=== PATIENT | male | born 1965 | race African-American/Black ===

== ENCOUNTER 2017-10-11 11:21 | Inpatient (IN) | payer OTHER ==
[2017-10-11 11:30] VITALS: BMI 21.8
--- NOTE | 2017-10-11 11:36 | HP ---
CIWA Score - CIWA Score Nausea/Vomitin-Mild Nausea/No Vomiting Muscle Tremors: 4-Moderate,w/Arms Extend Anxiety: 4-Mod. Anxious/Guarded Agitation: 1-Slight > Activity Paroxysmal Sweats: 1-Minimal Palms Moist Orientation: 2-Disoriented Date<2 days Tacttile Disturbances: 1-Very Mild Itch/Numbness Auditory Disturbances: 1-Very Mild Visual Disturbances: 1-Very Mild Sensitivity Headache: 2-Mild CIWA-Ar Total Score: 18 Admission ROS S - HPI Chief Complaint: I need detox, I want to stop drinking Allergies/Adverse Reactions: Allergies Allergy/AdvReac Type Severity Reaction Status Date / Time No Known Allergies Allergy Verified 10/11/17 12:13 History of Present Illness: 52 yo gentleman here for detox from alcohol - unsure of when/where his last detox is, has black outs. Was in [facility] ED for a fall - treated and sent for detox - laceration left eyebrow with steri-strips. Exam Limitations: Clinical Condition - Ebola screening Have you traveled outside of the country in the last 21 days: No Have you had contact with anyone from an Ebola affected area: No Have you been sick,other than usual withdrawal symptoms: No Do you have a fever: No - Review of Systems Constitutional: Loss of Appetite, Malaise, Changes in sleep, Weakness EENT: reports: Blurred Vision Respiratory: reports: Cough Cardiac: reports: No Symptoms Reported GI: reports: Indigestion : reports: Frequency Musculoskeletal: reports: Back Pain, Muscle Pain Integumentary: reports: Dryness Neuro: reports: Headache Endocrine: reports: No Symptoms Reported Hematology: reports: No Symptoms Reported Psychiatric: reports: Judgement Intact, Mood/Affect Appropiate, Anxious Other Systems: Reviewed and Negative Patient History - Patient Medical History Hx Anemia: No Hx Asthma: Yes (ON ALBUTEROL) Hx Chronic Obstructive Pulmonary Disease (COPD): No Hx Cancer: No Hx Cardiac Disorders: No Hx Congestive Heart Failure: No Hx Hypertension: No Hx Hypercholesterolemia: No Hx Pacemaker: No HX Cerebrovascular Accident: No Hx Seizures: No Hx Dementia: No Hx Diabetes: Yes Hx Gastrointestinal Disorders: No Hx Liver Disease: No Hx Genitourinary Disorders: No Hx Sexually Transmitted Disorders: No Hx Renal Disease (ESRD): No Hx Thyroid Disease: No Hx Human Immunodeficiency Virus (HIV): No Hx Hepatitis C: No Hx Depression: Yes (not on meds) Hx Suicide Attempt: No Hx Bipolar Disorder: No Hx Schizophrenia: No - Patient Surgical History Past Surgical History: No Hx Neurologic Surgery: No Hx Cataract Extraction: No Hx Cardiac Surgery: No Hx Lung Surgery: No Hx Breast Surgery: No Hx Breast Biopsy: No Hx Abdominal Surgery: Yes (hernia as a child) Hx Appendectomy: No Hx Cholecystectomy: No Hx Genitourinary Surgery: No Hx Section: No Hx Orthopedic Surgery: No Anesthesia Reaction: No - PPD History Previous Implant?: Yes Documented Results: Negative w/proof Date: 11/29/13 PPD to be Administered?: Yes - Reproductive History Patient is a Female of Child Bearing Age (11 -55 yrs old): No (male) - Smoking Cessation Smoking history: Current every day smoker Have you smoked in the past 12 months: Yes Aproximately how many cigarettes per day: 20 Cigars Per Day: 0 Hx Chewing Tobacco Use: No Initiated information on smoking cessation: Yes 'Breaking Loose' booklet given: 10/11/17 (give on floor) - Substance & Tx. History Hx Alcohol Use: Yes Hx Substance Use: No Substance Use Type: Alcohol Hx Substance Use Treatment: Yes - Substances Abused Alcohol Route: Oral Frequency: Daily Amount used: 2 pints liquor; two six packs of sixteen oz beers Age of first use: 11 Date of Last Use: 10/11/17 Family Disease History - Family Disease History Family Disease History: Diabetes: Sister ( - MVA), Other: Father ( etoh, , asthma), Mother (living, healthy), Sister Admission Physical Exam [facility] - Vital Signs Vital Signs: Vital Signs - 24 hr 10/11/17 11:23 Temperature 96.6 F L Pulse Rate 97 H Respiratory 18 Rate Blood Pressure 139/87 - Physical General Appearance: Yes: Nourished, Appropriately Dressed, Mild Distress HEENTM: Yes: Hearing grossly Normal, Normocephalic, Muffled/Hoarse Voice (low, muffled voice - states he has always been that way), Other (left eyebrow laceration/steristrips, conjunctiva mildly red) Respiratory: Yes: No Respiratory Distress, Rhonchi Neck: Yes: No masses,lesions,Nodules Breast: Yes: Breast Exam Deferred Cardiology: Yes: Regular Rhythm, Regular Rate Abdominal: Yes: Flat Genitourinary: Yes: Frequency Back: Yes: Decreased Range of Motion, Other (kyphosis) Musculoskeletal: Yes: Back pain Extremities: Yes: Normal Inspection, Non-Tender Neurological: Yes: Alert, Normal Mood/Affect, Normal Response Integumentary: Yes: Normal Color, Dry Lymphatic: Yes: Within Normal Limits - Addiitonal Findings: nti=[id number] - Diagnostic (1) Alcohol dependence Current Visit: Yes Status: Acute Qualifiers: Substance use status: uncomplicated Qualified Code(s): F10.20 - Alcohol dependence, uncomplicated (2) Asthma Current Visit: Yes Status: Acute Qualifiers: Asthma severity: moderate Asthma persistence: persistent (3) DM (diabetes mellitus), type 2 Current Visit: Yes Status: Acute Qualifiers: Diabetes mellitus complication status: without complication Diabetes mellitus moth exterminator insulin use: without moth exterminator use Qualified Code(s): E11.9 - Type 2 diabetes mellitus without complications (4) Nicotine dependence Current Visit: Yes Status: Acute Qualifiers: Nicotine product type: cigarettes Substance use status: uncomplicated Qualified Code(s): F17.210 - Nicotine dependence, cigarettes, uncomplicated Cleared for Admission [facility] - Detox or Rehab [facility] Level of Care: Medically Managed Detox Regimen/Protocol: Librium [facility] Breath Alcohol Content Breath Alcohol Content: 0.134 Urine Drug Screen - Results Drug Screen Negative: No Urine Drug Screen Results: BZO-Benzodiazepines
[2017-10-11] MEDS ORDERED: MAG HYDROX/AL HYDROX/SIMETH 30 ML UNIT-DOSE CUP PO PRN (11:55)
[2017-10-11] MEDS ORDERED: MAGNESIUM HYDROX 2400MG/30ML ORAL SUSPENSION 30 ML CUP PO PRN (11:55)
[2017-10-11] MEDS ORDERED: LOPERAMIDE HCL 2 MG CAPSULE PO PRN (11:55)
[2017-10-11] MEDS ORDERED: MENTHOL/PHENOL 1 EACH UD MM PRN (11:55)
[2017-10-11] MEDS ORDERED: IBUPROFEN 400 MG TABLET (FP) PO PRN (11:55)
[2017-10-11] MEDS ORDERED: guaiFENesin/D-METHORPHAN HB 10 ML UNIT-DOSE CUPS PO PRN (11:55)
[2017-10-11] MEDS ORDERED: MAGNESIUM CITRATE 300 ML BOTTLE PO PRN (11:55)
[2017-10-11] MEDS ORDERED: P-EPHED 60MG/TRIPROLIDI 2.5MG TABLET PO PRN (11:55)
[2017-10-11] MEDS ORDERED: hydrOXYzine PAMOATE 25 MG CAPSULE (FP) PO PRN (11:55)
[2017-10-11] MEDS ORDERED: chlordiazePOXIDE HCL 25 MG CAPSULE PO PRN (11:55)
[2017-10-11] MEDS ORDERED: ACETAMINOPHEN 325 MG TABLET (FP) PO PRN (11:55)
[2017-10-11] MEDS ORDERED: ALBUTEROL SO4 18 GM HFA INHALER IH PRN (11:57)
[2017-10-11] MEDS ORDERED: chlordiazePOXIDE HCL 25 MG CAPSULE PO ONE (14:00)
[2017-10-11] MEDS: metFORMIN HCL 500 MG TABLET (FP) PO SCH ×2 (14:03→23:22)
[2017-10-11] MEDS: NICOTINE 21 MG/24 HOURS TOPICAL PATCH TD SCH (14:05)
[2017-10-11] MEDS: chlordiazePOXIDE HCL 25 MG CAPSULE PO SCH ×2 (17:15→23:22)
[2017-10-11] MEDS: THIAMINE HCL 100 MG TABLET (FP) PO SCH (23:22)
[2017-10-12 00:07] LABS: URINE APPEARANCE SLCLOUDY; URINE BILIRUBIN NEGATIVE (NEGATIVE); URINE BLOOD NEGATIVE (NEGATIVE); URINE COLOR DKYELLOW; URINE GLUCOSE (UA) NEGATIVE (NEGATIVE); URINE KETONE TRACE (NEGATIVE); URINE LEUK ESTERASE NEGATIVE (NEGATIVE); URINE NITRITE NEGATIVE (NEGATIVE); URINE PROTEIN NEGATIVE (NEGATIVE)
[2017-10-12] MEDS: chlordiazePOXIDE HCL 25 MG CAPSULE PO SCH ×4 (06:23→22:42)
--- NOTE | 2017-10-12 08:49 | CONSULT ---
[facility] Psychiatric Consult - Data Date of interview: 10/12/17 Admission source: [facility] Identifying data: Mr Erazo is a 52 years old single Black male, unemployed with no source of income, living in a residence on [address] [facility] Substance Abuse History: Reports history of alcohol use. He started drinking alcohol at age 11, consumes 2 pints of liquor & 2x 6pk(16oz) of beer daily. Last drank on 10/11/17 Medical History: Significant for bronchial asthma, type 2 diabetes mellitus and history of surgery for umbilical hernia repair as a child. Smokes cigarettes 1ppd Psychiatric History: Denies history of previous psychiatric treatment Physical/Sexual Abuse/Trauma History: Denies history of verbal, physical or sexual abuse as well as DV relationship. No service Additional Comment: Denies criminal history Mental Status Exam - Mental Status Exam Alert and Oriented to: Time (Canot tell month, day and date), Place ([place]) , Person Patient Appearance: Disheveled Mood: Depressed Affect: Constricted Patient Behavior: Cooperative Speech Pattern: Clear Voice Loudness: Normal Thought Disorder: Not Present Hallucinations: Denies Suicidal Ideation: Denies Homicidal Ideation: Denies Insight/Judgement: Fair, Poor Sleep: Fair Appetite: Good Muscle strength/Tone: Normal Gait/Station: Normal Psychiatric Findings - Problem List ([place] 1, 2,3) (1) Alcohol-induced mood disorder Current Visit: Yes Status: Acute (2) Alcohol dependence with uncomplicated withdrawal Current Visit: Yes Status: Acute (3) Nicotine dependence Current Visit: Yes Status: Acute Qualifiers: Nicotine product type: cigarettes Substance use status: uncomplicated Qualified Code(s): F17.210 - Nicotine dependence, cigarettes, uncomplicated (4) Asthma Current Visit: Yes Status: Acute Qualifiers: Asthma severity: moderate Asthma persistence: persistent (5) DM (diabetes mellitus), type 2 Current Visit: Yes Status: Acute Qualifiers: Diabetes mellitus complication status: without complication Diabetes mellitus mcc insulin use: without mcc use Qualified Code(s): E11.9 - Type 2 diabetes mellitus without complications - Initial Treatment Plan Initial Treatment Plan: Continue inpatient detoxification
--- NOTE | 2017-10-12 08:57 | EKG ---
Test Reason : Blood Pressure : / mmHG Vent. Rate : 088 BPM Atrial Rate : 088 BPM P-R Int : 114 ms QRS Dur : 082 ms QT Int : 366 ms P-R-T Axes : 070 074 063 degrees QTc Int : 442 ms NORMAL SINUS RHYTHM WITH SHORT MT NONSPECIFIC T WAVE ABNORMALITY NO PREVIOUS ECGS AVAILABLE Confirmed by RHETT HORN MD ([id number]) on 10/12/2017 8:57:08 AM Referred By: Confirmed By:RHETT HORN MD
[2017-10-12 10:06] LABS: ALBUMIN 3.2 g/dl (3.4-5.0); ALK PHOS 50 U/L (45-117); ANION GAP 3 (8-16); BILIRUBIN,TOTAL 0.4 mg/dL (0.2-1.0); CALCIUM 8.8 mg/dL (8.5-10.1); CO2 37 mmol/L (21-32); CREATININE 0.7 mg/dL (0.7-1.3); GLUCOSE,RANDOM 92 mg/dL (74-106); SGOT/AST 8 U/L (15-37); SGPT/ALT 21 U/L (12-78); TOT PROT 5.9 g/dl (6.4-8.2)
[2017-10-12 10:15] LABS: MCH 28.2 pg (25.7-33.7); MCHC 31.9 g/dl (32.0-35.9); MEAN CELL VOLUME 88.5 fl (80-96); MEAN PLT VOLUME 9.4 fl (7.5-11.1); PLATELET COUNT 317 K/MM3 (134-434); RDW 15.5 % (11.9-15.9); WHITE BLOOD COUNT 8.8 K/mm3 (4.0-10.0)
[2017-10-12] MEDS: PRENATAL VITAMINS W/ FOLIC ACID TABLET (FP) PO SCH (11:10)
[2017-10-12] MEDS: NICOTINE 21 MG/24 HOURS TOPICAL PATCH TD SCH (11:10)
[2017-10-12] MEDS: metFORMIN HCL 500 MG TABLET (FP) PO SCH ×2 (11:11→22:42)
[2017-10-12 11:18] LABS: HIV 1 & 2 AB NEGATIVE; HIV 1 AGp24 NEGATIVE
--- NOTE | 2017-10-12 13:14 | PN ---
S CIWA - CIWA Score Nausea/Vomitin-No Nausea/No Vomiting Muscle Tremors: 4-Moderate,w/Arms Extend Anxiety: 4-Mod. Anxious/Guarded Agitation: 4-Moderately Restless Paroxysmal Sweats: 3 Orientation: 0-Oriented Tacttile Disturbances: 0-None Auditory Disturbances: 0-None Visual Disturbances: 0-None Headache: 3-Moderate CIWA-Ar Total Score: 18 BHS Progress Note (SOAP) Subjective: Tremor, sweating, headache, interrupted sleep Objective: 10/12/17 13:10 Last Vital Signs Temp Pulse Resp BP Pulse Ox 97.1 F L 122 H 18 127/78 10/12/17 10:32 10/12/17 10:32 10/12/17 10:32 10/12/17 10:32 pulse 122: tachycardia Laboratory Tests 10/11/17 10/11/17 10/11/17 12:25 14:30 22:00 WBC RBC Hgb Hct MCV MCH MCHC RDW Plt Count MPV Sodium Potassium Chloride Carbon Dioxide Anion Gap BUN Creatinine Creat Clearance w eGFR POC Glucometer 112 109 Random Glucose Calcium Total Bilirubin AST ALT Alkaline Phosphatase Total Protein Albumin Urine Color Dkyellow Urine Appearance Slcloudy Urine pH 5.0 Ur Specific [place] 1.025 Urine Protein Negative Urine Glucose (UA) Negative Urine Ketones Trace H Urine Blood Negative Urine Nitrite Negative Urine Bilirubin Negative Urine Urobilinogen 2.0 RPR Titer HIV 1&2 Antibody Screen HIV P24 Antigen 10/12/17 10/12/17 10/12/17 06:13 08:00 08:00 WBC 8.8 RBC 4.72 Hgb 13.3 Hct 41.8 MCV 88.5 MCH 28.2 MCHC 31.9 L RDW 15.5 Plt Count 317 D MPV 9.4 Sodium 143 Potassium 4.0 Chloride 103 Carbon Dioxide 37 H Anion Gap 3 L BUN 23 H Creatinine 0.7 Creat Clearance w eGFR > 60 POC Glucometer 115 Random Glucose 92 D Calcium 8.8 Total Bilirubin 0.4 D AST 8 L D ALT 21 Alkaline Phosphatase 50 Total Protein 5.9 L Albumin 3.2 L Urine Color Urine Appearance Urine pH Ur Specific [place] Urine Protein Urine Glucose (UA) Urine Ketones Urine Blood Urine Nitrite Urine Bilirubin Urine Urobilinogen RPR Titer HIV 1&2 Antibody Screen HIV P24 Antigen 10/12/17 10/12/17 08:00 08:00 WBC RBC Hgb Hct MCV MCH MCHC RDW Plt Count MPV Sodium Potassium Chloride Carbon Dioxide Anion Gap BUN Creatinine Creat Clearance w eGFR POC Glucometer Random Glucose Calcium Total Bilirubin AST ALT Alkaline Phosphatase Total Protein Albumin Urine Color Urine Appearance Urine pH Ur Specific [place] Urine Protein Urine Glucose (UA) Urine Ketones Urine Blood Urine Nitrite Urine Bilirubin Urine Urobilinogen RPR Titer Nonreactive HIV 1&2 Antibody Screen Negative HIV P24 Antigen Negative Labs noted: bun 23 Assessment: 10/12/17 13:12 Withdrawal symptoms Noted with azotemia Plan: Continue detox Tachycardia most likely secondary to withdrawal symptoms or dehydration: encouraged to drink plenty of water, continue to monitor vital signs Azotemia: encouraged to drink lots of water
[2017-10-12 13:20] LABS: URINE LEUK ESTERASE NEGATIVE (NEGATIVE)
[2017-10-12] MEDS: THIAMINE HCL 100 MG TABLET (FP) PO SCH (22:42)
[2017-10-13] MEDS: chlordiazePOXIDE HCL 25 MG CAPSULE PO SCH ×2 (06:25→10:37)
[2017-10-13] MEDS: PRENATAL VITAMINS W/ FOLIC ACID TABLET (FP) PO SCH (10:33)
[2017-10-13] MEDS: metFORMIN HCL 500 MG TABLET (FP) PO SCH ×2 (10:33→17:22)
[2017-10-13] MEDS: NICOTINE 21 MG/24 HOURS TOPICAL PATCH TD SCH (10:37)
--- NOTE | 2017-10-13 12:11 | PN ---
[facility] CIWA - CIWA Score Nausea/Vomitin-No Nausea/No Vomiting Muscle Tremors: 5 Anxiety: 4-Mod. Anxious/Guarded Agitation: 2 Paroxysmal Sweats: 3 Orientation: 2-Disoriented Date<2 days Tacttile Disturbances: 1-Very Mild Itch/Numbness Auditory Disturbances: 0-None Visual Disturbances: 0-None Headache: 0-None Present CIWA-Ar Total Score: 17 BHS Progress Note (SOAP) Subjective: Tremors, Sweating, Anxious, Fatigue. Objective: PT. A & O X 2 (UNCERTAIN ABOUT CURRENT DAY/ DATE). NO ACUTE DSITRESS. 10/13/17 12:09 Vital Signs Temperature 97.9 F 10/13/17 09:21 Pulse Rate 99 H 10/13/17 09:21 Respiratory Rate 18 10/13/17 09:21 Blood Pressure 117/79 10/13/17 09:21 O2 Sat by Pulse Oximetry (%) Laboratory Tests 10/11/17 10/11/17 10/11/17 12:25 14:30 22:00 WBC RBC Hgb Hct MCV MCH MCHC RDW Plt Count MPV Sodium Potassium Chloride Carbon Dioxide Anion Gap BUN Creatinine Creat Clearance w eGFR POC Glucometer 112 109 Random Glucose Calcium Total Bilirubin AST ALT Alkaline Phosphatase Total Protein Albumin Urine Color Dkyellow Urine Appearance Slcloudy Urine pH 5.0 Ur Specific [place] 1.025 Urine Protein Negative Urine Glucose (UA) Negative Urine Ketones Trace H Urine Blood Negative Urine Nitrite Negative Urine Bilirubin Negative Urine Urobilinogen 2.0 Ur Leukocyte Esterase Negative RPR Titer HIV 1&2 Antibody Screen HIV P24 Antigen 10/12/17 10/12/17 10/12/17 06:13 08:00 08:00 WBC 8.8 RBC 4.72 Hgb 13.3 Hct 41.8 MCV 88.5 MCH 28.2 MCHC 31.9 L RDW 15.5 Plt Count 317 D MPV 9.4 Sodium 143 Potassium 4.0 Chloride 103 Carbon Dioxide 37 H Anion Gap 3 L BUN 23 H Creatinine 0.7 Creat Clearance w eGFR > 60 POC Glucometer 115 Random Glucose 92 D Calcium 8.8 Total Bilirubin 0.4 D AST 8 L D ALT 21 Alkaline Phosphatase 50 Total Protein 5.9 L Albumin 3.2 L Urine Color Urine Appearance Urine pH Ur Specific [place] Urine Protein Urine Glucose (UA) Urine Ketones Urine Blood Urine Nitrite Urine Bilirubin Urine Urobilinogen Ur Leukocyte Esterase RPR Titer HIV 1&2 Antibody Screen HIV P24 Antigen 10/12/17 10/12/17 10/12/17 08:00 08:00 20:53 WBC RBC Hgb Hct MCV MCH MCHC RDW Plt Count MPV Sodium Potassium Chloride Carbon Dioxide Anion Gap BUN Creatinine Creat Clearance w eGFR POC Glucometer 205 Random Glucose Calcium Total Bilirubin AST ALT Alkaline Phosphatase Total Protein Albumin Urine Color Urine Appearance Urine pH Ur Specific [place] Urine Protein Urine Glucose (UA) Urine Ketones Urine Blood Urine Nitrite Urine Bilirubin Urine Urobilinogen Ur Leukocyte Esterase RPR Titer Nonreactive HIV 1&2 Antibody Screen Negative HIV P24 Antigen Negative 10/13/17 06:15 WBC RBC Hgb Hct MCV MCH MCHC RDW Plt Count MPV Sodium Potassium Chloride Carbon Dioxide Anion Gap BUN Creatinine Creat Clearance w eGFR POC Glucometer 100 Random Glucose Calcium Total Bilirubin AST ALT Alkaline Phosphatase Total Protein Albumin Urine Color Urine Appearance Urine pH Ur Specific [place] Urine Protein Urine Glucose (UA) Urine Ketones Urine Blood Urine Nitrite Urine Bilirubin Urine Urobilinogen Ur Leukocyte Esterase RPR Titer HIV 1&2 Antibody Screen HIV P24 Antigen LABS NOTED. Assessment: 10/13/17 12:10 WITHDRAWAL SYMPTOMS. Plan: CONTINUE DETOX. INCREASE DAILY PO FLUID INTAKE.
[2017-10-13] MEDS ORDERED: metFORMIN HCL 500 MG TABLET (FP) PO SCH (16:58)
[2017-10-13] MEDS: chlordiazePOXIDE 5 MG CAPSULE PO SCH ×2 (17:22→22:50)
[2017-10-13] MEDS: THIAMINE HCL 100 MG TABLET (FP) PO SCH (22:50)
[2017-10-14] MEDS: metFORMIN HCL 500 MG TABLET (FP) PO SCH ×2 (06:42→17:20)
[2017-10-14] MEDS: chlordiazePOXIDE 5 MG CAPSULE PO SCH ×2 (06:42→10:19)
--- NOTE | 2017-10-14 09:25 | PN ---
BHS Progress Note (SOAP) Subjective: tremor sweat irritable Objective: 10/14/17 09:24 Vital Signs Temperature 96.7 F L 10/14/17 09:12 Pulse Rate 84 10/14/17 09:12 Respiratory Rate 18 10/14/17 09:12 Blood Pressure 147/87 10/14/17 09:12 O2 Sat by Pulse Oximetry (%) Laboratory Last Values WBC 8.8 K/mm3 (4.0-10.0) 10/12/17 08:00 RBC 4.72 M/mm3 (4.00-5.60) 10/12/17 08:00 Hgb 13.3 GM/dL (11.7-16.9) 10/12/17 08:00 Hct 41.8 % (35.4-49) 10/12/17 08:00 MCV 88.5 fl (80-96) 10/12/17 08:00 MCH 28.2 pg (25.7-33.7) 10/12/17 08:00 MCHC 31.9 g/dl (32.0-35.9) L 10/12/17 08:00 RDW 15.5 % (11.9-15.9) 10/12/17 08:00 Plt Count 317 K/MM3 (134-434) D 10/12/17 08:00 MPV 9.4 fl (7.5-11.1) 10/12/17 08:00 Sodium 143 mmol/L (136-145) 10/12/17 08:00 Potassium 4.0 mmol/L (3.5-5.1) 10/12/17 08:00 Chloride 103 mmol/L (98-107) 10/12/17 08:00 Carbon Dioxide 37 mmol/L (21-32) H 10/12/17 08:00 Anion Gap 3 (8-16) L 10/12/17 08:00 BUN 23 mg/dL (7-18) H 10/12/17 08:00 Creatinine 0.7 mg/dL (0.7-1.3) 10/12/17 08:00 Creat Clearance w eGFR > 60 (>60) 10/12/17 08:00 POC Glucometer 100 UNITS (80-120) 10/14/17 05:59 Random Glucose 92 mg/dL (74-106) D 10/12/17 08:00 Calcium 8.8 mg/dL (8.5-10.1) 10/12/17 08:00 Total Bilirubin 0.4 mg/dL (0.2-1.0) D 10/12/17 08:00 AST 8 U/L (15-37) L D 10/12/17 08:00 ALT 21 U/L (12-78) 10/12/17 08:00 Alkaline Phosphatase 50 U/L (45-117) 10/12/17 08:00 Total Protein 5.9 g/dl (6.4-8.2) L 10/12/17 08:00 Albumin 3.2 g/dl (3.4-5.0) L 10/12/17 08:00 Urine Color Dkyellow 10/11/17 14:30 Urine Appearance Slcloudy 10/11/17 14:30 Urine pH 5.0 (5.0-8.0) 10/11/17 14:30 Ur Specific [place] 1.025 (1.001-1.035) 10/11/17 14:30 Urine Protein Negative (NEGATIVE) 10/11/17 14:30 Urine Glucose (UA) Negative (NEGATIVE) 10/11/17 14:30 Urine Ketones Trace (NEGATIVE) H 10/11/17 14:30 Urine Blood Negative (NEGATIVE) 10/11/17 14:30 Urine Nitrite Negative (NEGATIVE) 10/11/17 14:30 Urine Bilirubin Negative (NEGATIVE) 10/11/17 14:30 Urine Urobilinogen 2.0 mg/dL (0.2-1.0) 10/11/17 14:30 Ur Leukocyte Esterase Negative (NEGATIVE) 10/11/17 14:30 RPR Titer Nonreactive (NONREACTIVE) 10/12/17 08:00 HIV 1&2 Antibody Screen Negative 10/12/17 08:00 HIV P24 Antigen Negative 10/12/17 08:00 lab noted Assessment: 10/14/17 09:25 withdrawal sx Plan: observation with detox regimen
[2017-10-14] MEDS: PRENATAL VITAMINS W/ FOLIC ACID TABLET (FP) PO SCH (10:18)
[2017-10-14] MEDS: NICOTINE 21 MG/24 HOURS TOPICAL PATCH TD SCH (10:19)
[2017-10-14] MEDS: chlordiazePOXIDE HCL 10 MG CAPSULE PO SCH ×2 (17:20→22:29)
[2017-10-14] MEDS: THIAMINE HCL 100 MG TABLET (FP) PO SCH (22:29)
[2017-10-15] MEDS: chlordiazePOXIDE HCL 10 MG CAPSULE PO SCH (06:03)
[2017-10-15] MEDS: metFORMIN HCL 500 MG TABLET (FP) PO SCH (08:00)
[2017-10-15 09:51] VITALS: BP 104/67; PULSE 69; TEMP 9.9
--- NOTE | 2017-10-15 11:20 | DS ---
[facility] Detox Discharge Summary Admission Date: 10/11/17 Discharge Date: 10/15/17 - History Present History: Alcohol Dependence Additional Comments: DETOX COMPLETED. ALERT O X 3. PT WAS PICKED UP TODAY BY [facility] FOR AFTER CARE. 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 Pertinent Past History: TYPE 2 DM ASTHMA - Physical Exam Results Vital Signs: Vital Signs Temperature 9.9 F L 10/15/17 09:51 Pulse Rate 69 10/15/17 09:51 Respiratory Rate 18 10/15/17 09:51 Blood Pressure 104/67 10/15/17 09:51 O2 Sat by Pulse Oximetry (%) Pertinent Admission Physical Exam Findings: WITHDRAWAL SX Laboratory Last Values WBC 8.8 K/mm3 (4.0-10.0) 10/12/17 08:00 RBC 4.72 M/mm3 (4.00-5.60) 10/12/17 08:00 Hgb 13.3 GM/dL (11.7-16.9) 10/12/17 08:00 Hct 41.8 % (35.4-49) 10/12/17 08:00 MCV 88.5 fl (80-96) 10/12/17 08:00 MCH 28.2 pg (25.7-33.7) 10/12/17 08:00 MCHC 31.9 g/dl (32.0-35.9) L 10/12/17 08:00 RDW 15.5 % (11.9-15.9) 10/12/17 08:00 Plt Count 317 K/MM3 (134-434) D 10/12/17 08:00 MPV 9.4 fl (7.5-11.1) 10/12/17 08:00 Sodium 143 mmol/L (136-145) 10/12/17 08:00 Potassium 4.0 mmol/L (3.5-5.1) 10/12/17 08:00 Chloride 103 mmol/L (98-107) 10/12/17 08:00 Carbon Dioxide 37 mmol/L (21-32) H 10/12/17 08:00 Anion Gap 3 (8-16) L 10/12/17 08:00 BUN 23 mg/dL (7-18) H 10/12/17 08:00 Creatinine 0.7 mg/dL (0.7-1.3) 10/12/17 08:00 Creat Clearance w eGFR > 60 (>60) 10/12/17 08:00 POC Glucometer 90 UNITS (80-120) 10/15/17 07:18 Random Glucose 92 mg/dL (74-106) D 10/12/17 08:00 Calcium 8.8 mg/dL (8.5-10.1) 10/12/17 08:00 Total Bilirubin 0.4 mg/dL (0.2-1.0) D 10/12/17 08:00 AST 8 U/L (15-37) L D 10/12/17 08:00 ALT 21 U/L (12-78) 10/12/17 08:00 Alkaline Phosphatase 50 U/L (45-117) 10/12/17 08:00 Total Protein 5.9 g/dl (6.4-8.2) L 10/12/17 08:00 Albumin 3.2 g/dl (3.4-5.0) L 10/12/17 08:00 Urine Color Dkyellow 10/11/17 14:30 Urine Appearance Slcloudy 10/11/17 14:30 Urine pH 5.0 (5.0-8.0) 10/11/17 14:30 Ur Specific [place] 1.025 (1.001-1.035) 10/11/17 14:30 Urine Protein Negative (NEGATIVE) 10/11/17 14:30 Urine Glucose (UA) Negative (NEGATIVE) 10/11/17 14:30 Urine Ketones Trace (NEGATIVE) H 10/11/17 14:30 Urine Blood Negative (NEGATIVE) 10/11/17 14:30 Urine Nitrite Negative (NEGATIVE) 10/11/17 14:30 Urine Bilirubin Negative (NEGATIVE) 10/11/17 14:30 Urine Urobilinogen 2.0 mg/dL (0.2-1.0) 10/11/17 14:30 Ur Leukocyte Esterase Negative (NEGATIVE) 10/11/17 14:30 RPR Titer Nonreactive (NONREACTIVE) 10/12/17 08:00 HIV 1&2 Antibody Screen Negative 10/12/17 08:00 HIV P24 Antigen Negative 10/12/17 08:00 - Treatment Hospital Course: Detox Protocol Followed, Detoxed Safely, Responded well, Discharged Condition Good, Rehab Referral Accepted Patient has Accepted a Rehab Referral to: [facility] - Medication Discharge Medications: Ambulatory Orders Albuterol Sulfate Inhaler - [Ventolin HFA Inhaler -] 2 inh PO Q4H PRN #1 inhaler 10/15/17 Metformin HCl [Glucophage -] 500 mg PO BID #60 tablet 10/15/17 - AMA Did Patient Leave Against Medical Advice: No
== END 2017-10-15 10:48 | disposition home or self-care (01) | DRG 775 ==
LOC: YASAS 11:21 → Y3N 13:24
PROVIDERS: ADMIT Internal Medicine; ATTEND Internal Medicine
PROC: HZ2ZZZZ Detoxification Services for Substance Abuse Treatment (ICD-10-PCS; principal; 2017-10-11)
DX: F10.230 Alcohol dependence with withdrawal, uncomplicated (principal); F17.213 Nicotine dependence, cigarettes, with withdrawal; F10.24 Alcohol dependence with alcohol-induced mood disorder; J45.20 Mild intermittent asthma, uncomplicated; E11.9 Type 2 diabetes mellitus without complications; Z79.84 Long term (current) use of oral hypoglycemic drugs
CPT/HCPCS: 36415; 80053; 81003; 85027; 86593; 87389; 93005; 93010

== ENCOUNTER 2017-12-20 11:20 | Inpatient (IN) | payer OTHER ==
[2017-12-20 12:13] VITALS: BMI 21.6
--- NOTE | 2017-12-20 14:34 | HP ---
CIWA Score - CIWA Score Nausea/Vomitin-Mild Nausea/No Vomiting Muscle Tremors: 4-Moderate,w/Arms Extend Anxiety: 4-Mod. Anxious/Guarded Agitation: 1-Slight > Activity Paroxysmal Sweats: 1-Minimal Palms Moist Orientation: 1-Uncertain about Date Tacttile Disturbances: 1-Very Mild Itch/Numbness Auditory Disturbances: 1-Very Mild Visual Disturbances: 1-Very Mild Sensitivity Headache: 2-Mild CIWA-Ar Total Score: 17 Admission ROS S - HPI Chief Complaint: I'm tired of suffering, I want help to stop drinking Allergies/Adverse Reactions: Allergies Allergy/AdvReac Type Severity Reaction Status Date / Time No Known Allergies Allergy Verified 12/20/17 14:51 History of Present Illness: 52 yo gentleman here for detox from alcohol - denies using any other substance although pcp, thc and bzo found in urine tox. No seizures, does have black outs. Scabbed areas on cheek - states he fell a few days ago due to intoxication but did not seek care. Exam Limitations: No Limitations - Ebola screening Have you traveled outside of the country in the last 21 days: No (N) Have you had contact with anyone from an Ebola affected area: No Have you been sick,other than usual withdrawal symptoms: No Do you have a fever: No - Review of Systems Constitutional: Loss of Appetite, Malaise, Changes in sleep, Weakness EENT: reports: Blurred Vision, Nose Congestion Respiratory: reports: SOB with Exertion Cardiac: reports: No Symptoms Reported GI: reports: Nausea, Poor Appetite, Indigestion : reports: Frequency Musculoskeletal: reports: No Symptoms Reported Integumentary: reports: No Symptoms Reported Neuro: reports: Headache, Tremors Endocrine: reports: No Symptoms Reported Hematology: reports: No Symptoms Reported Psychiatric: reports: Judgement Intact, Mood/Affect Appropiate, Anxious Other Systems: Reviewed and Negative Patient History - Patient Medical History Hx Anemia: No Hx Asthma: Yes (ON ALBUTEROL) Hx Chronic Obstructive Pulmonary Disease (COPD): Yes Hx Cancer: No Hx Cardiac Disorders: No Hx Congestive Heart Failure: No Hx Hypertension: No Hx Hypercholesterolemia: Yes (poor adherence to meds) Hx Pacemaker: No HX Cerebrovascular Accident: No Hx Seizures: No Hx Dementia: No Hx Diabetes: Yes (on meds) Hx Gastrointestinal Disorders: No Hx Liver Disease: No Hx Genitourinary Disorders: No Hx Sexually Transmitted Disorders: No Hx Renal Disease (ESRD): No Hx Thyroid Disease: No Hx Human Immunodeficiency Virus (HIV): No Hx Hepatitis C: No Hx Depression: Yes (not on meds) Hx Suicide Attempt: No Hx Bipolar Disorder: No Hx Schizophrenia: No Other Medical History: legally blind left eye - Patient Surgical History Past Surgical History: No Hx Neurologic Surgery: No Hx Cataract Extraction: No Hx Cardiac Surgery: No Hx Lung Surgery: No Hx Breast Surgery: No Hx Breast Biopsy: No Hx Abdominal Surgery: Yes (hernia as a child) Hx Appendectomy: No Hx Cholecystectomy: No Hx Genitourinary Surgery: No Hx Section: No Hx Orthopedic Surgery: No Other Surgical History: detached retina surgery years ago Anesthesia Reaction: No - PPD History Previous Implant?: Yes Documented Results: Negative w/proof Implanted On Prior [facility] Admission?: Yes Date: 10/13/17 Results: 0mm PPD to be Administered?: No - Reproductive History Patient is a Female of Child Bearing Age (11 -55 yrs old): No (male) - Smoking Cessation Smoking history: Current every day smoker Have you smoked in the past 12 months: Yes Aproximately how many cigarettes per day: 20 Cigars Per Day: 0 Hx Chewing Tobacco Use: No Initiated information on smoking cessation: Yes 'Breaking Loose' booklet given: 12/20/17 (give on floor) - Substance & Tx. History Hx Alcohol Use: Yes - Substances Abused Alcohol Route: Oral Frequency: Daily Amount used: two six packs 12 oz beer; 1 pint liquor Age of first use: 13 Date of Last Use: 12/19/17 Family Disease History - Family Disease History Family Disease History: Diabetes: Sister ( - MVA), Other: Father ( etoh, , asthma), Mother (living, healthy), Sister Admission Physical Exam BHS - Vital Signs Vital Signs: Vital Signs - 24 hr 12/20/17 12:09 Temperature 98.3 F Pulse Rate 88 Respiratory 16 Rate Blood Pressure 143/91 - Physical General Appearance: Yes: Appropriately Dressed, Mild Distress, Thin, Tremorous, Anxious HEENTM: Yes: Hearing grossly Normal, Normocephalic, Normal Voice, Muffled/ Hoarse Voice, Other (both eye with red conjunctiva (no exudate)) Respiratory: Yes: No Respiratory Distress, Rhonchi Neck: Yes: No masses,lesions,Nodules, Supple Breast: Yes: Breast Exam Deferred Cardiology: Yes: Regular Rhythm, Regular Rate Abdominal: Yes: Flat Genitourinary: Yes: Frequency Back: Yes: Normal Inspection Musculoskeletal: Yes: full range of Motion, Gait Steady Neurological: Yes: Alert, Normal Mood/Affect, Normal Response Integumentary: Yes: Normal Color, Warm, Other (right cheek with 2cm scabbed area , left eyebrow with scabbing) Lymphatic: Yes: Within Normal Limits - Addiitonal Findings: bgm=95 - Diagnostic (1) Alcohol dependence with uncomplicated withdrawal Current Visit: Yes Status: Acute (2) Nicotine dependence Current Visit: Yes Status: Acute Qualifiers: Nicotine product type: cigarettes Substance use status: in withdrawal Qualified Code(s): F17.213 - Nicotine dependence, cigarettes, with withdrawal (3) Legally blind in left eye, as defined in [place] Current Visit: Yes Status: Acute (4) Asthma Current Visit: Yes Status: Chronic Qualifiers: Asthma severity: moderate Asthma persistence: persistent (5) DM (diabetes mellitus), type 2 Current Visit: Yes Status: Chronic Qualifiers: Diabetes mellitus complication status: without complication Diabetes mellitus sales manager [place] insulin use: without sales manager [place] use Qualified Code(s): E11.9 - Type 2 diabetes mellitus without complications (6) Syncope Current Visit: Yes Status: Acute Qualifiers: Syncope type: unspecified Qualified Code(s): R55 - Syncope and collapse Cleared for Admission [facility] - Detox or Rehab [facility] Level of Care: Medically Managed Detox Regimen/Protocol: Librium S Breath Alcohol Content Breath Alcohol Content: 0 Urine Drug Screen - Results Urine Drug Screen Results: THC-Marijuana, MET-Methamphetamine, PCP-Phencyclidine , BZO-Benzodiazepines
[2017-12-20] MEDS ORDERED: P-EPHED 60MG/TRIPROLIDI 2.5MG TABLET PO PRN (14:49)
[2017-12-20] MEDS ORDERED: MENTHOL/PHENOL 1 EACH UD MM PRN (14:49)
[2017-12-20] MEDS ORDERED: NICOTINE POLACRILEX 4 MG GUM BC PRN (14:49)
[2017-12-20] MEDS ORDERED: IBUPROFEN 400 MG TABLET (FP) PO PRN (14:49)
[2017-12-20] MEDS ORDERED: ACETAMINOPHEN 325 MG TABLET (FP) PO PRN (14:49)
[2017-12-20] MEDS ORDERED: chlordiazePOXIDE HCL 25 MG CAPSULE PO ONE (14:49)
[2017-12-20] MEDS ORDERED: chlordiazePOXIDE HCL 25 MG CAPSULE PO PRN (14:49)
[2017-12-20] MEDS ORDERED: MAG HYDROX/AL HYDROX/SIMETH 30 ML UNIT-DOSE CUP PO PRN (14:49)
[2017-12-20] MEDS ORDERED: MAGNESIUM CITRATE 300 ML BOTTLE PO PRN (14:49)
[2017-12-20] MEDS ORDERED: guaiFENesin/D-METHORPHAN HB 10 ML UNIT-DOSE CUPS PO PRN (14:49)
[2017-12-20] MEDS ORDERED: MAGNESIUM HYDROX 2400MG/30ML ORAL SUSPENSION 30 ML CUP PO PRN (14:49)
[2017-12-20] MEDS ORDERED: LOPERAMIDE HCL 2 MG CAPSULE PO PRN (14:49)
[2017-12-20] MEDS ORDERED: hydrOXYzine PAMOATE 25 MG CAPSULE (FP) PO PRN (14:49)
[2017-12-20] MEDS ORDERED: ALBUTEROL SO4 18 GM HFA INHALER IH PRN (14:51)
[2017-12-20] MEDS: chlordiazePOXIDE HCL 25 MG CAPSULE PO SCH ×2 (16:01→22:22)
[2017-12-20 16:27] LABS: URINE APPEARANCE CLEAR; URINE BILIRUBIN NEGATIVE (NEGATIVE); URINE BLOOD NEGATIVE (NEGATIVE); URINE COLOR DKYELLOW; URINE GLUCOSE (UA) NEGATIVE (NEGATIVE); URINE KETONE TRACE (NEGATIVE); URINE LEUK ESTERASE NEGATIVE (NEGATIVE); URINE NITRITE NEGATIVE (NEGATIVE)
[2017-12-20 16:54] LABS: URINE PROTEIN 1+ (NEGATIVE)
[2017-12-20 16:56] LABS: EPI CELLS RARE /HPF (FEW); URINE HYALINE CAST 2 /lpf; URINE MUCUS MANY
[2017-12-20] MEDS: metFORMIN HCL 500 MG TABLET (FP) PO SCH (17:25)
[2017-12-20] MEDS: THIAMINE HCL 100 MG TABLET (FP) PO SCH (22:22)
[2017-12-21] MEDS: chlordiazePOXIDE HCL 25 MG CAPSULE PO SCH ×3 (07:01→17:46)
[2017-12-21] MEDS: metFORMIN HCL 500 MG TABLET (FP) PO SCH ×2 (07:02→17:25)
[2017-12-21] MEDS: PRENATAL VITAMINS W/ FOLIC ACID TABLET (FP) PO SCH (10:29)
[2017-12-21 10:58] LABS: HEMATOCRIT 37.4 % (35.4-49); HEMOGLOBIN 11.9 GM/dL (11.7-16.9); MCH 28.6 pg (25.7-33.7); MCHC 31.9 g/dl (32.0-35.9); MEAN CELL VOLUME 89.5 fl (80-96); MEAN PLT VOLUME 9.7 fl (7.5-11.1); PLATELET COUNT 266 K/MM3 (134-434); RBC 4.17 M/mm3 (4.00-5.60); RDW 16.5 % (11.9-15.9); WHITE BLOOD COUNT 10.9 K/mm3 (4.0-10.0)
[2017-12-21 11:05] LABS: ANION GAP 5 (8-16); BILIRUBIN,TOTAL 0.4 mg/dL (0.2-1.0); BLOOD UREA NITROGEN 18 mg/dL (7-18); CALCIUM 8.8 mg/dL (8.5-10.1); CHLORIDE 106 mmol/L (98-107); CO2 35 mmol/L (21-32); CREATININE 0.6 mg/dL (0.7-1.3); GLUCOSE,RANDOM 103 mg/dL (74-106); POTASSIUM 3.7 mmol/L (3.5-5.1); SGOT/AST 25 U/L (15-37); SGPT/ALT 32 U/L (12-78); SODIUM 146 mmol/L (136-145); TOT PROT 5.6 g/dl (6.4-8.2)
[2017-12-21 11:06] LABS: ALK PHOS 54 U/L (45-117)
--- NOTE | 2017-12-21 11:13 | EKG ---
Test Reason : Blood Pressure : / mmHG Vent. Rate : 076 BPM Atrial Rate : 076 BPM P-R Int : 104 ms QRS Dur : 088 ms QT Int : 400 ms P-R-T Axes : 071 074 062 degrees QTc Int : 450 ms SINUS RHYTHM WITH SHORT VA OTHERWISE NORMAL ECG WHEN COMPARED WITH ECG OF 11-OCT-2017 15:10, NO SIGNIFICANT CHANGE WAS FOUND Confirmed by LUCAS RODRIGUES MD ([id number]) on 12/21/2017 11:13:05 AM Referred By: Confirmed By:LUCAS RODRIGUES MD
--- NOTE | 2017-12-21 11:34 | PN ---
S CIWA - CIWA Score Nausea/Vomitin-Mild Nausea/No Vomiting Muscle Tremors: 4-Moderate,w/Arms Extend Anxiety: 3 Agitation: 3 Paroxysmal Sweats: 1-Minimal Palms Moist Orientation: 0-Oriented Tacttile Disturbances: 1-Very Mild Itch/Numbness Auditory Disturbances: 0-None Visual Disturbances: 0-None Headache: 1-Very Mild CIWA-Ar Total Score: 14 BHS Progress Note (SOAP) Subjective: sweat GI distress tremor irritable agitation anxiety Objective: 12/21/17 11:33 Vital Signs Temperature 97.1 F L 12/21/17 09:49 Pulse Rate 97 H 12/21/17 09:49 Respiratory Rate 20 12/21/17 09:49 Blood Pressure 113/70 12/21/17 09:49 O2 Sat by Pulse Oximetry (%) Laboratory Last Values WBC 10.9 K/mm3 (4.0-10.0) H 12/21/17 08:00 RBC 4.17 M/mm3 (4.00-5.60) 12/21/17 08:00 Hgb 11.9 GM/dL (11.7-16.9) D 12/21/17 08:00 Hct 37.4 % (35.4-49) 12/21/17 08:00 MCV 89.5 fl (80-96) 12/21/17 08:00 MCH 28.6 pg (25.7-33.7) 12/21/17 08:00 MCHC 31.9 g/dl (32.0-35.9) L 12/21/17 08:00 RDW 16.5 % (11.9-15.9) H 12/21/17 08:00 Plt Count 266 K/MM3 (134-434) 12/21/17 08:00 MPV 9.7 fl (7.5-11.1) 12/21/17 08:00 Sodium 146 mmol/L (136-145) H 12/21/17 08:00 Potassium 3.7 mmol/L (3.5-5.1) 12/21/17 08:00 Chloride 106 mmol/L (98-107) 12/21/17 08:00 Carbon Dioxide 35 mmol/L (21-32) H 12/21/17 08:00 Anion Gap 5 (8-16) L 12/21/17 08:00 BUN 18 mg/dL (7-18) D 12/21/17 08:00 Creatinine 0.6 mg/dL (0.7-1.3) L 12/21/17 08:00 Creat Clearance w eGFR > 60 (>60) 12/21/17 08:00 POC Glucometer 107 UNITS (80-120) 12/21/17 06:34 Random Glucose 103 mg/dL (74-106) 12/21/17 08:00 Calcium 8.8 mg/dL (8.5-10.1) 12/21/17 08:00 Total Bilirubin 0.4 mg/dL (0.2-1.0) 12/21/17 08:00 AST 25 U/L (15-37) D 12/21/17 08:00 ALT 32 U/L (12-78) D 12/21/17 08:00 Alkaline Phosphatase 54 U/L (45-117) 12/21/17 08:00 Total Protein 5.6 g/dl (6.4-8.2) L 12/21/17 08:00 Albumin 3.0 g/dl (3.4-5.0) L 12/21/17 08:00 Urine Color Dkyellow 12/20/17 16:00 Urine Appearance Clear 12/20/17 16:00 Urine pH 5.0 (5.0-8.0) 12/20/17 16:00 Ur Specific [place] 1.031 (1.001-1.035) 12/20/17 16:00 Urine Protein 1+ (NEGATIVE) H 12/20/17 16:00 Urine Glucose (UA) Negative (NEGATIVE) 12/20/17 16:00 Urine Ketones Trace (NEGATIVE) H 12/20/17 16:00 Urine Blood Negative (NEGATIVE) 12/20/17 16:00 Urine Nitrite Negative (NEGATIVE) 12/20/17 16:00 Urine Bilirubin Negative (NEGATIVE) 12/20/17 16:00 Urine Urobilinogen 2.0 mg/dL (0.2-1.0) 12/20/17 16:00 Ur Leukocyte Esterase Negative (NEGATIVE) 12/20/17 16:00 Urine WBC (Auto) 1 /hpf (3-5) 12/20/17 16:00 Urine RBC (Auto) 1 /hpf (0-3) 12/20/17 16:00 Ur Epithelial Cells Rare /HPF (FEW) 12/20/17 16:00 Hyaline Casts 2 /lpf 12/20/17 16:00 Urine Mucus Many 12/20/17 16:00 lab noted Assessment: 12/21/17 11:33 withdrawal sx Plan: continue detox
--- NOTE | 2017-12-21 14:09 | CONSULT ---
[facility] Psychiatric Consult - Data Date of interview: 12/21/17 Admission source: Longterm(he does not recall name of that institution) Identifying data: Mr Erazo is a 52 years old single Black male, unemployed on SSI, living in a NH seeking detox treatment for alcohol Substance Abuse History: Reports history of alcohol use. He started drinking alcohol at age 13, consumes one pint of liquor & 2x 6pk(12oz) of beer daily. Last drank on 12/19/17 Medical History: Significant for bronchial asthma, hyperlipidemia, diabetes mellitus and history of syrgery for hernia repair(as a child) and eye surgery for detached retina years ago(legally blind left eye). Smokes cigarettes 1ppd Psychiatric History: Denies history of previous psychiatric treatment. However, Abilify 10 mg po daily is listed as one of his home medication Physical/Sexual Abuse/Trauma History: Denies history of emotional, physical or sexual abuse as well as DV relationship Additional Comment: Denies criminal history Mental Status Exam - Mental Status Exam Alert and Oriented to: Time (partially oriented to time), Place ([place]), Person Cognitive Function: Fair Patient Appearance: Well Groomed Mood: Depressed Affect: Appropriate Patient Behavior: Cooperative Speech Pattern: Clear Voice Loudness: Normal Thought Process: Intact, Goal Oriented Hallucinations: Denies Suicidal Ideation: Denies Homicidal Ideation: Denies Insight/Judgement: Poor Sleep: Poorly Appetite: Good Muscle strength/Tone: Normal Gait/Station: Normal Psychiatric Findings - Problem List ([place] 1, 2,3) (1) Alcohol-induced mood disorder Current Visit: Yes Status: Acute (2) Alcohol dependence with uncomplicated withdrawal Current Visit: Yes Status: Acute (3) Nicotine dependence Current Visit: Yes Status: Chronic Qualifiers: Nicotine product type: cigarettes Substance use status: in withdrawal Qualified Code(s): F17.213 - Nicotine dependence, cigarettes, with withdrawal (4) Legally blind in left eye, as defined in [place] Current Visit: Yes Status: Acute (5) Asthma Current Visit: Yes Status: Chronic Qualifiers: Asthma severity: moderate Asthma persistence: persistent (6) DM (diabetes mellitus), type 2 Current Visit: Yes Status: Chronic Qualifiers: Diabetes mellitus complication status: without complication Diabetes mellitus intermediate project manager insulin use: without intermediate project manager use Qualified Code(s): E11.9 - Type 2 diabetes mellitus without complications - Initial Treatment Plan Initial Treatment Plan: 1) Continue inpatient detoxification. 2) Research NH, get consent from patient to call NH about psychiatric history
[2017-12-21] MEDS: TIOTROPIUM BROMIDE 18 MCG/INH (DEVICE W/ 5 CAPSULES) IH SCH (17:46)
[2017-12-21] MEDS: BUDESONIDE/FORMETEROL FUMARATE 160/4.5 mcg INHALER IH SCH (22:55)
[2017-12-22] MEDS: chlordiazePOXIDE HCL 25 MG CAPSULE PO SCH ×3 (00:17→10:19)
[2017-12-22] MEDS: THIAMINE HCL 100 MG TABLET (FP) PO SCH ×2 (00:18→22:04)
[2017-12-22] MEDS: ATORVASTATIN CA 40 MG TABLET (FP) PO SCH ×2 (00:20→22:04)
[2017-12-22] MEDS: metFORMIN HCL 500 MG TABLET (FP) PO SCH ×2 (06:48→17:25)
--- NOTE | 2017-12-22 09:57 | PN ---
S CIWA - CIWA Score Nausea/Vomitin Muscle Tremors: 3 Anxiety: 3 Agitation: 2 Paroxysmal Sweats: 1-Minimal Palms Moist Orientation: 0-Oriented Tacttile Disturbances: 1-Very Mild Itch/Numbness Auditory Disturbances: 1-Very Mild Visual Disturbances: 0-None Headache: 2-Mild CIWA-Ar Total Score: 16 BHS Progress Note (SOAP) Subjective: ALERT,IRRITABLE,ANXIOUS,INTERRUPTED SLEEP,TREMOR Objective: 12/22/17 09:55 Vital Signs Temperature 98.3 F 12/22/17 06:37 Pulse Rate 73 12/22/17 06:37 Respiratory Rate 18 12/22/17 06:37 Blood Pressure 135/78 12/22/17 06:37 O2 Sat by Pulse Oximetry (%) 12/22/17 09:56 Laboratory Last Values WBC 10.9 K/mm3 (4.0-10.0) H 12/21/17 08:00 RBC 4.17 M/mm3 (4.00-5.60) 12/21/17 08:00 Hgb 11.9 GM/dL (11.7-16.9) D 12/21/17 08:00 Hct 37.4 % (35.4-49) 12/21/17 08:00 MCV 89.5 fl (80-96) 12/21/17 08:00 MCH 28.6 pg (25.7-33.7) 12/21/17 08:00 MCHC 31.9 g/dl (32.0-35.9) L 12/21/17 08:00 RDW 16.5 % (11.9-15.9) H 12/21/17 08:00 Plt Count 266 K/MM3 (134-434) 12/21/17 08:00 MPV 9.7 fl (7.5-11.1) 12/21/17 08:00 Sodium 146 mmol/L (136-145) H 12/21/17 08:00 Potassium 3.7 mmol/L (3.5-5.1) 12/21/17 08:00 Chloride 106 mmol/L (98-107) 12/21/17 08:00 Carbon Dioxide 35 mmol/L (21-32) H 12/21/17 08:00 Anion Gap 5 (8-16) L 12/21/17 08:00 BUN 18 mg/dL (7-18) D 12/21/17 08:00 Creatinine 0.6 mg/dL (0.7-1.3) L 12/21/17 08:00 Creat Clearance w eGFR > 60 (>60) 12/21/17 08:00 POC Glucometer 102 UNITS (80-120) 12/22/17 06:32 Random Glucose 103 mg/dL (74-106) 12/21/17 08:00 Calcium 8.8 mg/dL (8.5-10.1) 12/21/17 08:00 Total Bilirubin 0.4 mg/dL (0.2-1.0) 12/21/17 08:00 AST 25 U/L (15-37) D 12/21/17 08:00 ALT 32 U/L (12-78) D 12/21/17 08:00 Alkaline Phosphatase 54 U/L (45-117) 12/21/17 08:00 Total Protein 5.6 g/dl (6.4-8.2) L 12/21/17 08:00 Albumin 3.0 g/dl (3.4-5.0) L 12/21/17 08:00 Urine Color Dkyellow 12/20/17 16:00 Urine Appearance Clear 12/20/17 16:00 Urine pH 5.0 (5.0-8.0) 12/20/17 16:00 Ur Specific [place] 1.031 (1.001-1.035) 12/20/17 16:00 Urine Protein 1+ (NEGATIVE) H 12/20/17 16:00 Urine Glucose (UA) Negative (NEGATIVE) 12/20/17 16:00 Urine Ketones Trace (NEGATIVE) H 12/20/17 16:00 Urine Blood Negative (NEGATIVE) 12/20/17 16:00 Urine Nitrite Negative (NEGATIVE) 12/20/17 16:00 Urine Bilirubin Negative (NEGATIVE) 12/20/17 16:00 Urine Urobilinogen 2.0 mg/dL (0.2-1.0) 12/20/17 16:00 Ur Leukocyte Esterase Negative (NEGATIVE) 12/20/17 16:00 Urine WBC (Auto) 1 /hpf (3-5) 12/20/17 16:00 Urine RBC (Auto) 1 /hpf (0-3) 12/20/17 16:00 Ur Epithelial Cells Rare /HPF (FEW) 12/20/17 16:00 Hyaline Casts 2 /lpf 12/20/17 16:00 Urine Mucus Many 12/20/17 16:00 RPR Titer Nonreactive (NONREACTIVE) 12/21/17 08:00 Assessment: 12/22/17 09:56 WITHDRAWAL SYMPTOM Plan: CONTINUE DETOX
[2017-12-22] MEDS: PRENATAL VITAMINS W/ FOLIC ACID TABLET (FP) PO SCH (10:19)
[2017-12-22] MEDS: ASPIRIN 81 MG CHEWABLE TABLETS PO SCH (10:19)
[2017-12-22] MEDS: LISINOPRIL 5 MG TABLET (FP) PO SCH (10:19)
[2017-12-22] MEDS: TIOTROPIUM BROMIDE 18 MCG/INH (DEVICE W/ 5 CAPSULES) IH SCH (10:20)
[2017-12-22] MEDS: BUDESONIDE/FORMETEROL FUMARATE 160/4.5 mcg INHALER IH SCH ×2 (10:20→22:55)
[2017-12-22] MEDS: chlordiazePOXIDE 5 MG CAPSULE PO SCH ×2 (17:52→23:49)
[2017-12-23] MEDS: chlordiazePOXIDE 5 MG CAPSULE PO SCH ×2 (06:30→10:18)
[2017-12-23] MEDS: metFORMIN HCL 500 MG TABLET (FP) PO SCH ×2 (06:31→17:17)
--- NOTE | 2017-12-23 09:33 | PN ---
S Progress Note (SOAP) Subjective: ALERT,INTERRUPTED SLEEP Objective: 12/23/17 09:32 Vital Signs Temperature 97.9 F 12/23/17 06:00 Pulse Rate 70 12/23/17 06:00 Respiratory Rate 16 12/23/17 06:00 Blood Pressure 122/68 12/23/17 06:00 O2 Sat by Pulse Oximetry (%) Assessment: 12/23/17 09:32 WITHDRAWAL SYMPTOM Plan: CONTINUE DETOX,DISCHARGE IN AM
[2017-12-23] MEDS: BUDESONIDE/FORMETEROL FUMARATE 160/4.5 mcg INHALER IH SCH ×2 (10:15→22:29)
[2017-12-23] MEDS: LISINOPRIL 5 MG TABLET (FP) PO SCH (10:15)
[2017-12-23] MEDS: ASPIRIN 81 MG CHEWABLE TABLETS PO SCH (10:15)
[2017-12-23] MEDS: PRENATAL VITAMINS W/ FOLIC ACID TABLET (FP) PO SCH (10:15)
[2017-12-23] MEDS: TIOTROPIUM BROMIDE 18 MCG/INH (DEVICE W/ 5 CAPSULES) IH SCH (10:16)
[2017-12-23] MEDS: chlordiazePOXIDE HCL 10 MG CAPSULE PO SCH ×2 (17:37→22:29)
[2017-12-23] MEDS: ATORVASTATIN CA 40 MG TABLET (FP) PO SCH (22:28)
[2017-12-23] MEDS: THIAMINE HCL 100 MG TABLET (FP) PO SCH (22:28)
[2017-12-24] MEDS: chlordiazePOXIDE HCL 10 MG CAPSULE PO SCH (06:41)
[2017-12-24] MEDS: metFORMIN HCL 500 MG TABLET (FP) PO SCH (06:41)
--- NOTE | 2017-12-24 08:06 | DS ---
[facility] Detox Discharge Summary Admission Date: 12/20/17 Discharge Date: 12/24/17 - History Present History: Alcohol Dependence Additional Comments: FOLLOW UP WITH AFTER CARE PROGRAM ARRANGEMENT Pertinent Past History: ASTHMA NICOTINE DEPENDENCE LEGALLY BLIND LEFT EYE - Physical Exam Results Vital Signs: Vital Signs Temperature 97.7 F 12/24/17 06:00 Pulse Rate 76 12/24/17 06:00 Respiratory Rate 18 12/24/17 06:00 Blood Pressure 135/86 12/24/17 06:00 O2 Sat by Pulse Oximetry (%) Pertinent Admission Physical Exam Findings: WITHDRAWAL SYMPTOM - Treatment Hospital Course: Detox Protocol Followed, Detoxed Safely, Responded well, Discharged Condition Good Patient has Accepted a Rehab Referral to: DECLINED - Medication Discharge Medications: Ambulatory Orders Albuterol Sulfate Inhaler - [Ventolin HFA Inhaler -] 2 inh PO Q4H PRN #1 inhaler 10/15/17 metFORMIN HCL [Glucophage -] 500 mg PO BID #60 tablet 10/15/17 Aripiprazole [Abilify -] 10 mg PO DAILY 12/21/17 Aspirin [ASA -] 81 mg PO DAILY 12/21/17 Atorvastatin Ca [Lipitor] 40 mg PO HS 12/21/17 Budesonide/Formeterol Fumarate [SYMBICORT 160/4.5mcg -] 1 inh PO BID 12/21/17 Lisinopril [Prinivil] 5 mg PO DAILY 12/21/17 Thiamine Mononitrate [Vitamin B-1] 100 mg PO DAILY 12/21/17 Tiotropium [place] [Spiriva] 2 inh IH DAILY 12/21/17 - Diagnosis (1) Alcohol dependence with uncomplicated withdrawal Current Visit: Yes Status: Acute (2) Legally blind in left eye, as defined in [place] Current Visit: Yes Status: Acute (3) Asthma Current Visit: Yes Status: Chronic Qualifiers: Asthma severity: moderate Asthma persistence: persistent (4) Nicotine dependence Current Visit: Yes Status: Chronic Qualifiers: Nicotine product type: cigarettes Substance use status: in withdrawal Qualified Code(s): F17.213 - Nicotine dependence, cigarettes, with withdrawal - AMA Did Patient Leave Against Medical Advice: No
--- NOTE | 2017-12-24 08:18 | PN ---
BHS Progress Note Note: PATIENT ALSO HAS HYPERTENSION,HYPERCHOLESTEROLEMIA,ASTHMA.TYPE 2 DM
[2017-12-24] MEDS: LISINOPRIL 5 MG TABLET (FP) PO SCH (09:34)
[2017-12-24] MEDS: ASPIRIN 81 MG CHEWABLE TABLETS PO SCH (09:34)
[2017-12-24] MEDS: BUDESONIDE/FORMETEROL FUMARATE 160/4.5 mcg INHALER IH SCH (09:34)
[2017-12-24] MEDS: TIOTROPIUM BROMIDE 18 MCG/INH (DEVICE W/ 5 CAPSULES) IH SCH (09:34)
[2017-12-24] MEDS: PRENATAL VITAMINS W/ FOLIC ACID TABLET (FP) PO SCH (09:34)
[2017-12-24 10:07] VITALS: BP 157/97; PULSE 85; TEMP 98.6
== END 2017-12-24 10:02 | disposition home or self-care (01) | DRG 775 ==
LOC: YASAS 11:20 → Y6N 15:27
PROVIDERS: ADMIT Internal Medicine; ATTEND Internal Medicine
PROC: HZ2ZZZZ Detoxification Services for Substance Abuse Treatment (ICD-10-PCS; principal; 2017-12-20)
DX: F10.230 Alcohol dependence with withdrawal, uncomplicated (principal); F17.213 Nicotine dependence, cigarettes, with withdrawal; F10.24 Alcohol dependence with alcohol-induced mood disorder; J45.40 Moderate persistent asthma, uncomplicated; E11.9 Type 2 diabetes mellitus without complications; Z79.84 Long term (current) use of oral hypoglycemic drugs; H54.8 Legal blindness, as defined in USA; R55 Syncope and collapse
CPT/HCPCS: 36415; 80053; 81003; 81015; 82962; 85027; 86593; 93005; 93010

== ENCOUNTER 2018-01-14 10:07 | Inpatient (IN) | payer OTHER ==
[2018-01-14 12:22] VITALS: BMI 22.3
--- NOTE | 2018-01-14 13:39 | HP ---
CIWA Score - CIWA Score Nausea/Vomitin-Mild Nausea/No Vomiting Muscle Tremors: 4-Moderate,w/Arms Extend Anxiety: 4-Mod. Anxious/Guarded Agitation: 4-Moderately Restless Paroxysmal Sweats: 1-Minimal Palms Moist Orientation: 0-Oriented Tacttile Disturbances: 1-Very Mild Itch/Numbness Auditory Disturbances: 0-None Visual Disturbances: 0-None Headache: 2-Mild CIWA-Ar Total Score: 17 Admission ROS BHS - HPI Chief Complaint: withdrawal sx Allergies/Adverse Reactions: Allergies Allergy/AdvReac Type Severity Reaction Status Date / Time No Known Allergies Allergy Verified 01/14/18 12:42 History of Present Illness: 52 years old male medical history of asthma diabetes ii and alcohol nicotine dependence has depression and longest sobriety 17 years relapse 2012 is admitted to detox Exam Limitations: No Limitations - Ebola screening Have you traveled outside of the country in the last 21 days: No Have you had contact with anyone from an Ebola affected area: No Have you been sick,other than usual withdrawal symptoms: No Do you have a fever: No - Review of Systems Constitutional: Loss of Appetite, Changes in sleep, Unintentional Wgt. Loss, Unexplained wgt Loss EENT: reports: No Symptoms Reported, Cataracts (left eye) Respiratory: reports: SOB with Exertion, Productive cough (greenish) Cardiac: reports: No Symptoms Reported GI: reports: Nausea, Poor Appetite, Poor Fluid Intake, Abdominal cramping : reports: No Symptoms Reported Musculoskeletal: reports: No Symptoms Reported Integumentary: reports: Change in Color (bridge of the nose + cheecks), Other ( multiple old scars with recent newly healed scars on knees hands and left hip) Neuro: reports: Tremors Endocrine: reports: No Symptoms Reported Hematology: reports: No Symptoms Reported Psychiatric: reports: Judgement Intact, Anxious, Depressed Other Systems: Reviewed and Negative Patient History - Patient Medical History Hx Anemia: No Hx Asthma: Yes Hx Chronic Obstructive Pulmonary Disease (COPD): No Hx Cancer: No Hx Cardiac Disorders: No Hx Congestive Heart Failure: No Hx Hypertension: Yes (no treatment) Hx Hypercholesterolemia: Yes (poor adherence to meds) Hx Pacemaker: No HX Cerebrovascular Accident: No Hx Seizures: No Hx Dementia: No Hx Diabetes: Yes (NIDDM) Hx Gastrointestinal Disorders: No Hx Liver Disease: No Hx Genitourinary Disorders: No Hx Sexually Transmitted Disorders: No Hx Renal Disease (ESRD): No Hx Thyroid Disease: No Hx Human Immunodeficiency Virus (HIV): No Hx Hepatitis C: No Hx Depression: Yes Hx Suicide Attempt: No Hx Bipolar Disorder: No Hx Schizophrenia: No - Patient Surgical History Past Surgical History: Yes Hx Neurologic Surgery: No Hx Cataract Extraction: Yes (left eye) Hx Cardiac Surgery: No Hx Lung Surgery: No Hx Breast Surgery: No Hx Breast Biopsy: No Hx Abdominal Surgery: Yes (umbilical hernia as a child) Hx Appendectomy: No Hx Cholecystectomy: No Hx Genitourinary Surgery: No Hx Orthopedic Surgery: No Other Surgical History: detached retina, left eye years ago Anesthesia Reaction: No - PPD History Previous Implant?: Yes Documented Results: Negative w/proof Implanted On Prior [facility] Admission?: Yes Date: 10/13/17 Results: 0 mm PPD to be Administered?: No - Smoking Cessation Smoking history: Current every day smoker Have you smoked in the past 12 months: Yes Aproximately how many cigarettes per day: 20 Cigars Per Day: 0 Hx Chewing Tobacco Use: No Initiated information on smoking cessation: Yes 'Breaking Loose' booklet given: 01/14/18 - Substance & Tx. History Hx Alcohol Use: Yes Hx Substance Use: Yes Substance Use Type: Alcohol, Marijuana - Substances Abused Alcohol-wine/beer Route: Oral Frequency: Daily Amount used: 3 pts./2-6 pks. Age of first use: 13 Date of Last Use: 01/13/18 Family Disease History - Family Disease History Family Disease History: Diabetes: Sister ( - MVA), Other: Father ( etoh, , asthma), Mother (living, healthy), Brother, Sister Admission Physical Exam S - Vital Signs Vital Signs: Vital Signs - 24 hr 01/14/18 12:21 Temperature 98.5 F Pulse Rate 95 H Respiratory 20 Rate Blood Pressure 121/67 - Physical General Appearance: Yes: Appropriately Dressed, Mild Distress, Thin, Tremorous, Irritable, Sweating, Anxious HEENTM: Yes: Hearing grossly Normal, Normal ENT Inspection, Normocephalic, Normal Voice, Other (redness of the left eye) Respiratory: Yes: Chest Non-Tender, No Respiratory Distress, No Accessory Muscle Use, Wheezing, Expiration Neck: Yes: Supple, Trachea in good position Breast: Yes: Breasts Symetrical Cardiology: Yes: Regular Rhythm, S1, S2, Tachycardia Abdominal: Yes: Normal Bowel Sounds, Non Tender, Flat Genitourinary: Yes: Within Normal Limits Back: Yes: Normal Inspection Musculoskeletal: Yes: full range of Motion, Gait Steady, Back pain (multiple fall related to alcohol drinking) Extremities: Yes: Non-Tender, Tremors, Other (left hip mild redness from fall "the other day") Neurological: Yes: Alert, Motor Strength 5/5, Normal Response, Depressed Affect Integumentary: Yes: Warm Lymphatic: Yes: Within Normal Limits - Diagnostic (1) Alcohol dependence with uncomplicated withdrawal Current Visit: Yes Status: Acute (2) Asthma Current Visit: Yes Status: Chronic Qualifiers: Asthma severity: moderate Asthma persistence: persistent Asthma complication type: with status asthmaticus Qualified Code(s): J45.42 - Moderate persistent asthma with status asthmaticus (3) DM (diabetes mellitus), type 2 Current Visit: Yes Status: Chronic Qualifiers: Diabetes mellitus [facility] insulin use: without terminal system operator use Diabetes mellitus complication status: without complication Qualified Code(s): E11.9 - Type 2 diabetes mellitus without complications (4) Depression Current Visit: Yes Status: Suspected Qualifiers: Depression Type: dysthymia Qualified Code(s): F34.1 - Dysthymic disorder (5) Nicotine dependence Current Visit: Yes Status: Acute Qualifiers: Nicotine product type: cigarettes Substance use status: in withdrawal Qualified Code(s): F17.213 - Nicotine dependence, cigarettes, with withdrawal (6) Dry eye Current Visit: Yes Status: Chronic Cleared for Admission [facility] - Detox or Rehab [facility] Level of Care: Medically Managed Detox Regimen/Protocol: Librium [facility] Breath Alcohol Content Breath Alcohol Content: 0 Urine Drug Screen - Results Drug Screen Negative: No Urine Drug Screen Results: THC-Marijuana, BAR-Barbiturates, BZO-Benzodiazepines
[2018-01-14] MEDS ORDERED: MAGNESIUM CITRATE 300 ML BOTTLE PO PRN (13:51)
[2018-01-14] MEDS ORDERED: MAGNESIUM HYDROX 2400MG/30ML ORAL SUSPENSION 30 ML CUP PO PRN (13:51)
[2018-01-14] MEDS ORDERED: NICOTINE POLACRILEX 4 MG GUM BUC PRN (13:51)
[2018-01-14] MEDS ORDERED: MENTHOL/PHENOL 1 EACH UD MM PRN (13:51)
[2018-01-14] MEDS ORDERED: P-EPHED 60MG/TRIPROLIDI 2.5MG TABLET PO PRN (13:51)
[2018-01-14] MEDS ORDERED: guaiFENesin/D-METHORPHAN HB 10 ML UNIT-DOSE CUPS PO PRN (13:51)
[2018-01-14] MEDS ORDERED: LOPERAMIDE HCL 2 MG CAPSULE PO PRN (13:51)
[2018-01-14] MEDS ORDERED: MAG HYDROX/AL HYDROX/SIMETH 30 ML UNIT-DOSE CUP PO PRN (13:51)
[2018-01-14] MEDS ORDERED: ALBUTEROL SO4 0.083% IH SOL 2.5 MG/3 ML VIAL.NEB. NEB PRN (13:56)
[2018-01-14] MEDS: NICOTINE 21 MG/24 HOURS TOPICAL PATCH TD SCH (15:10)
[2018-01-14] MEDS: chlordiazePOXIDE HCL 25 MG CAPSULE PO PRN (15:10)
--- NOTE | 2018-01-14 15:25 | CONSULT ---
[facility] Psychiatric Consult - Data Date of interview: 01/14/18 Admission source: [facility] Identifying data: Readmission to [facility] for this 52 y/o AA male seeking detox treatment on for alcohol dependence (toxicology is positive for cannabis).Patient is single without children,domiciled,unemployed and supported on SSI benefits as per self-report. Substance Abuse History: Discussed in this interview.Mr Erazo endorses a 30+ year history of alcohol dependence (consumes 1-3 pints of liquor daily + 2 X 6 packs of beer).Used alcohol and marihuana prior to this [facility] visit. Details as follows : Smoking history: Current every day smoker. Have you smoked in the past 12 months: Yes. Aproximately how many cigarettes per day: 20. Cigars Per Day: 0. Hx Chewing Tobacco Use: No. Initiated information on smoking cessation : Yes. 'Breaking Loose' booklet given: 01/14/18. - Substance & Tx. History. Hx Alcohol Use: Yes. Hx Substance Use: Yes. Substance Use Type: Alcohol, Marijuana. - Substances Abused. Alcohol-wine/beer. Route: Oral. Frequency : Daily. Amount used: 3 pts./2-6 pks. Age of first use: 13. Date of Last Use : 01/13/18 Medical History: Multiple medical co-morbidities : bronchial asthma, dyslipidemia, diabetes mellitus,history of herniorraphy and eye surgery for a detached retina (left eye).Patient is legally blind in the left eye. Psychiatric History: Vague and approximate historian.Patient admits to one psychiatric hospitalization at [facility] five years ago.Diagnosis and circumstances of admission : unclear.Mr Erazo does not recall.No recollection of names of medications, if any, prescribed at the time.Patient indicates that he has been functioning without psychotropic medications throughout his life.No contact with psychiatric [employer] care providers.No reported history of suicide attempts. Physical/Sexual Abuse/Trauma History: Patient denies. Additional Comment: Urine Drug Screen Results: THC-Marijuana, BAR-Barbiturates, BZO-Benzodiazepines.Noted. Mental Status Exam - Mental Status Exam Alert and Oriented to: Place, Person Cognitive Function: Grossly Intact Patient Appearance: Disheveled (thin habitus,short stature) Mood: Nervous, Withdrawn, Anxious Affect: Mood Congruent, Constricted Patient Behavior: Fatigued, Cooperative Speech Pattern: Clear (slow but spontaneous speech) Voice Loudness: Moderately Soft/Quiet Thought Process: Goal Oriented Thought Disorder: Not Present Hallucinations: Denies Suicidal Ideation: Denies Homicidal Ideation: Denies Insight/Judgement: Poor Sleep: Well Appetite: Fair Gait/Station: Other (slow but steady gait) Psychiatric Findings - Problem List ([place] 1, 2,3) (1) Alcohol dependence with uncomplicated withdrawal Current Visit: Yes Status: Acute (2) Marijuana abuse Current Visit: Yes Status: Acute (3) Nicotine dependence Current Visit: Yes Status: Acute Qualifiers: Nicotine product type: cigarettes Substance use status: in withdrawal Qualified Code(s): F17.213 - Nicotine dependence, cigarettes, with withdrawal (4) Substance induced mood disorder Current Visit: Yes Status: Acute - Initial Treatment Plan Initial Treatment Plan: Psychoeducation.Records from previous admissions to [facility] : revisited.Orientation to unit.Detoxification initiated.Observation.
[2018-01-14] MEDS: ARTIFICIAL TEARS (POLYVINYL ALCOHOL 1.4%) OPTH DROPS OU SCH ×3 (15:29→22:48)
[2018-01-14] MEDS: INSULIN SLIDING SCALE (NOVOLOG) 1 VIAL SQ SCH ×2 (17:18→21:53)
[2018-01-14 17:22] LABS: URINE APPEARANCE CLEAR; URINE BILIRUBIN NEGATIVE (NEGATIVE); URINE BLOOD NEGATIVE (NEGATIVE); URINE COLOR AMBER; URINE GLUCOSE (UA) 3+ (NEGATIVE); URINE KETONE TRACE (NEGATIVE); URINE LEUK ESTERASE NEGATIVE (NEGATIVE); URINE NITRITE NEGATIVE (NEGATIVE); URINE UROBILINOGEN 4.0 E.U/dl mg/dL (0.2-1.0)
[2018-01-14 17:26] LABS: URINE PROTEIN 1+ (NEGATIVE)
[2018-01-14 17:29] LABS: EPI CELLS RARE /HPF (FEW); URINE MUCUS MANY
[2018-01-14] MEDS: metFORMIN HCL 500 MG TABLET (FP) PO SCH (18:48)
[2018-01-14] MEDS: ALBUTEROL SO4 18 GM HFA INHALER IH PRN (19:00)
[2018-01-14] MEDS: ACETAMINOPHEN 325 MG TABLET (FP) PO PRN (19:01)
[2018-01-14] MEDS: chlordiazePOXIDE HCL 25 MG CAPSULE PO SCH (22:48)
[2018-01-14] MEDS: BUDESONIDE/FORMETEROL FUMARATE 160/4.5 mcg INHALER IH SCH (22:48)
[2018-01-14] MEDS: ATORVASTATIN CA 40 MG TABLET (FP) PO SCH (22:48)
[2018-01-14] MEDS: THIAMINE HCL 100 MG TABLET (FP) PO SCH (22:49)
[2018-01-15] MEDS: chlordiazePOXIDE HCL 25 MG CAPSULE PO SCH ×4 (06:00→22:31)
[2018-01-15] MEDS: ACETAMINOPHEN 325 MG TABLET (FP) PO PRN ×3 (06:01→17:27)
[2018-01-15] MEDS: metFORMIN HCL 500 MG TABLET (FP) PO SCH ×2 (06:36→17:26)
[2018-01-15] MEDS: INSULIN SLIDING SCALE (NOVOLOG) 1 VIAL SQ SCH ×4 (06:37→22:08)
[2018-01-15 10:14] LABS: HEMATOCRIT 34.4 % (35.4-49); HEMOGLOBIN 11.1 GM/dL (11.7-16.9); MCH 29.2 pg (25.7-33.7); MCHC 32.3 g/dl (32.0-35.9); MEAN CELL VOLUME 90.5 fl (80-96); MEAN PLT VOLUME 11.3 fl (7.5-11.1); PLATELET COUNT 246 K/MM3 (134-434); RBC 3.81 M/mm3 (4.00-5.60); RDW 16.5 % (11.9-15.9); WHITE BLOOD COUNT 12.3 K/mm3 (4.0-10.0)
[2018-01-15 10:29] LABS: CHLORIDE 103 mmol/L (98-107); POTASSIUM 3.6 mmol/L (3.5-5.1); SODIUM 141 mmol/L (136-145)
[2018-01-15 10:45] LABS: ALBUMIN 3.7 g/dl (3.4-5.0); ALK PHOS 59 U/L (45-117); ANION GAP 9 (8-16); BILIRUBIN,TOTAL 0.9 mg/dL (0.2-1.0); BLOOD UREA NITROGEN 19 mg/dL (7-18); CALCIUM 8.6 mg/dL (8.5-10.1); CO2 29 mmol/L (21-32); CREATININE 0.7 mg/dL (0.7-1.3); GLUCOSE,RANDOM 202 mg/dL (74-106); SGOT/AST 11 U/L (15-37); SGPT/ALT 14 U/L (12-78); TOT PROT 6.5 g/dl (6.4-8.2)
[2018-01-15] MEDS: PRENATAL VITAMINS W/ FOLIC ACID TABLET (FP) PO SCH (10:50)
[2018-01-15] MEDS: NICOTINE 21 MG/24 HOURS TOPICAL PATCH TD SCH (10:50)
[2018-01-15] MEDS: ARTIFICIAL TEARS (POLYVINYL ALCOHOL 1.4%) OPTH DROPS OU SCH ×4 (10:50→22:30)
[2018-01-15] MEDS: LISINOPRIL 5 MG TABLET (FP) PO SCH (10:50)
[2018-01-15] MEDS: ASPIRIN 81 MG CHEWABLE TABLETS PO SCH (10:50)
[2018-01-15] MEDS: BUDESONIDE/FORMETEROL FUMARATE 160/4.5 mcg INHALER IH SCH ×2 (10:50→22:30)
--- NOTE | 2018-01-15 16:45 | EKG ---
Test Reason : Blood Pressure : / mmHG Vent. Rate : 097 BPM Atrial Rate : 097 BPM P-R Int : 106 ms QRS Dur : 084 ms QT Int : 350 ms P-R-T Axes : 065 074 058 degrees QTc Int : 444 ms SINUS RHYTHM WITH SHORT MO NONSPECIFIC T WAVE ABNORMALITY ABNORMAL ECG WHEN COMPARED WITH ECG OF 20-DEC-2017 15:54, NONSPECIFIC T WAVE ABNORMALITY, WORSE IN INFERIOR LEADS Confirmed by RAVI MARTINEZ, LUCAS ([id number]) on 01/15/2018 4:44:56 PM Referred By: Confirmed By:LUCAS RODRIGUES MD
--- NOTE | 2018-01-15 17:23 | PN ---
[facility] CIWA - CIWA Score Nausea/Vomitin-Mild Nausea/No Vomiting Muscle Tremors: 3 Anxiety: 4-Mod. Anxious/Guarded Agitation: 1-Slight > Activity Paroxysmal Sweats: 3 Orientation: 2-Disoriented Date<2 days Tacttile Disturbances: 1-Very Mild Itch/Numbness Auditory Disturbances: 0-None Visual Disturbances: 2-Mild Sensitivity Headache: 0-None Present CIWA-Ar Total Score: 17 S Progress Note (SOAP) Subjective: Sweating, Anxious, Fatigue, Nausea. Patient reports discomfort at lateral aspect of right side of chest X approx. 2 days. Patient notes that he fell on right side just before pain started. Objective: PATIENT A & O X 2 (UNCERTAIN ABOUT CURRENT DAY/ DATE). PATIENT OBSERVED AMBULATING ON UNIT. NO ACUTE DISTRESS. TENDERNESS NOTED UPON PALPATION OF LATERAL ASPECT OF RIGHT PECTORALIS MUSCLE. LUNG SOUNDS AUSCULTATED CLEAR AND EQUAL BILATERALLY. ADMISSION ECG RESULTS NOTED. PATIENT DENIES PAIN AT STERNAL AND LEFT ASPECTS OF CHEST. PATIENT DENIES DIZZINESS AND SOB. 01/15/18 17:19 Vital Signs Temperature 97.1 F L 01/15/18 14:49 Pulse Rate 91 H 01/15/18 14:49 Respiratory Rate 18 01/15/18 14:49 Blood Pressure 112/61 01/15/18 14:49 O2 Sat by Pulse Oximetry (%) Laboratory Tests 01/14/18 01/14/18 01/14/18 13:12 15:00 16:50 WBC RBC Hgb Hct MCV MCH MCHC RDW Plt Count MPV Sodium Potassium Chloride Carbon Dioxide Anion Gap BUN Creatinine Creat Clearance w eGFR POC Glucometer 218 117 Random Glucose Calcium Total Bilirubin AST ALT Alkaline Phosphatase Total Protein Albumin Urine Color [place] Urine Appearance Clear Urine pH 5.0 Ur Specific [place] 1.037 H Urine Protein 1+ H Urine Glucose (UA) 3+ H Urine Ketones Trace H Urine Blood Negative Urine Nitrite Negative Urine Bilirubin Negative Urine Urobilinogen 4.0 e.u/dl Ur Leukocyte Esterase Negative Urine WBC (Auto) 1 Urine RBC (Auto) 1 Ur Epithelial Cells Rare Urine Mucus Many RPR Titer 01/14/18 01/15/18 01/15/18 21:19 06:00 06:00 WBC 12.3 H RBC 3.81 L Hgb 11.1 L Hct 34.4 L MCV 90.5 MCH 29.2 MCHC 32.3 RDW 16.5 H Plt Count 246 MPV 11.3 H D Sodium 141 Potassium 3.6 Chloride 103 Carbon Dioxide 29 Anion Gap 9 BUN 19 H Creatinine 0.7 Creat Clearance w eGFR > 60 POC Glucometer 111 Random Glucose 202 H D Calcium 8.6 Total Bilirubin 0.9 D AST 11 L D ALT 14 D Alkaline Phosphatase 59 Total Protein 6.5 Albumin 3.7 D Urine Color Urine Appearance Urine pH Ur Specific [place] Urine Protein Urine Glucose (UA) Urine Ketones Urine Blood Urine Nitrite Urine Bilirubin Urine Urobilinogen Ur Leukocyte Esterase Urine WBC (Auto) Urine RBC (Auto) Ur Epithelial Cells Urine Mucus RPR Titer 01/15/18 01/15/18 01/15/18 06:00 06:00 16:27 WBC RBC Hgb Hct MCV MCH MCHC RDW Plt Count MPV Sodium Potassium Chloride Carbon Dioxide Anion Gap BUN Creatinine Creat Clearance w eGFR POC Glucometer 118 114 Random Glucose Calcium Total Bilirubin AST ALT Alkaline Phosphatase Total Protein Albumin Urine Color Urine Appearance Urine pH Ur Specific [place] Urine Protein Urine Glucose (UA) Urine Ketones Urine Blood Urine Nitrite Urine Bilirubin Urine Urobilinogen Ur Leukocyte Esterase Urine WBC (Auto) Urine RBC (Auto) Ur Epithelial Cells Urine Mucus RPR Titer Nonreactive LABS NOTED. 01/15/18 17:21 Assessment: 01/15/18 17:23 WITHDRAWAL SYMPTOMS. Plan: CONTINUE DETOX. NAPROXEN BID FOR DISCOMFORT IN RIGHT PECTORALIS MUSCLE. PATIENT ADVISED TO NOTIFIY NURSING / MEDICAL STAFF IMMEDIATELY SHOULD PAIN BECOME MORE SEVERE OR SHOULD LOCATION OF PAIN CHANGE AT ANY TIME. PATIENT VERBALIZED UNDERSTANDING OF INSTRUCTIONS.
[2018-01-15] MEDS: ATORVASTATIN CA 40 MG TABLET (FP) PO SCH (22:31)
[2018-01-15] MEDS: NAPROXEN 250 MG TABLET (FP) PO SCH (22:31)
[2018-01-15] MEDS: THIAMINE HCL 100 MG TABLET (FP) PO SCH (22:32)
[2018-01-16] MEDS: chlordiazePOXIDE HCL 25 MG CAPSULE PO SCH ×3 (06:11→17:36)
[2018-01-16] MEDS: metFORMIN HCL 500 MG TABLET (FP) PO SCH ×2 (06:11→17:36)
[2018-01-16] MEDS: INSULIN SLIDING SCALE (NOVOLOG) 1 VIAL SQ SCH ×4 (06:12→22:35)
[2018-01-16] MEDS: BUDESONIDE/FORMETEROL FUMARATE 160/4.5 mcg INHALER IH SCH ×2 (10:47→22:34)
[2018-01-16] MEDS: NICOTINE 21 MG/24 HOURS TOPICAL PATCH TD SCH (10:48)
[2018-01-16] MEDS: NAPROXEN 250 MG TABLET (FP) PO SCH ×2 (10:48→22:31)
[2018-01-16] MEDS: ARTIFICIAL TEARS (POLYVINYL ALCOHOL 1.4%) OPTH DROPS OU SCH ×4 (10:48→22:33)
[2018-01-16] MEDS: PRENATAL VITAMINS W/ FOLIC ACID TABLET (FP) PO SCH (10:48)
[2018-01-16] MEDS: ASPIRIN 81 MG CHEWABLE TABLETS PO SCH (10:48)
[2018-01-16] MEDS: LISINOPRIL 5 MG TABLET (FP) PO SCH (10:48)
--- NOTE | 2018-01-16 15:37 | PN ---
S CIWA - CIWA Score Nausea/Vomitin-No Nausea/No Vomiting Muscle Tremors: 2 Anxiety: 2 Agitation: 0-Normal Activity Paroxysmal Sweats: 3 Orientation: 2-Disoriented Date<2 days Tacttile Disturbances: 0-None Auditory Disturbances: 0-None Visual Disturbances: 3-Moderate Sensitivity Headache: 4-Moderately Severe CIWA-Ar Total Score: 16 [facility] Progress Note (SOAP) Subjective: Body Aches, Anxious, Fatigue, H/A. Objective: PATIENT A & O X 2 (UNCERTAIN ABOUT CURRENT DAY/ DATE). NO ACUTE DISTRESS. 01/16/18 15:34 Vital Signs Temperature 97.7 F 01/16/18 14:23 Pulse Rate 105 H 01/16/18 14:23 Respiratory Rate 18 01/16/18 14:23 Blood Pressure 115/71 01/16/18 14:23 O2 Sat by Pulse Oximetry (%) Laboratory Tests 01/14/18 01/14/18 01/14/18 13:12 15:00 16:50 WBC RBC Hgb Hct MCV MCH MCHC RDW Plt Count MPV Sodium Potassium Chloride Carbon Dioxide Anion Gap BUN Creatinine Creat Clearance w eGFR POC Glucometer 218 117 Random Glucose Calcium Total Bilirubin AST ALT Alkaline Phosphatase Total Protein Albumin Urine Color [place] Urine Appearance Clear Urine pH 5.0 Ur Specific [place] 1.037 H Urine Protein 1+ H Urine Glucose (UA) 3+ H Urine Ketones Trace H Urine Blood Negative Urine Nitrite Negative Urine Bilirubin Negative Urine Urobilinogen 4.0 e.u/dl Ur Leukocyte Esterase Negative Urine WBC (Auto) 1 Urine RBC (Auto) 1 Ur Epithelial Cells Rare Urine Mucus Many RPR Titer 01/14/18 01/15/18 01/15/18 21:19 06:00 06:00 WBC 12.3 H RBC 3.81 L Hgb 11.1 L Hct 34.4 L MCV 90.5 MCH 29.2 MCHC 32.3 RDW 16.5 H Plt Count 246 MPV 11.3 H D Sodium 141 Potassium 3.6 Chloride 103 Carbon Dioxide 29 Anion Gap 9 BUN 19 H Creatinine 0.7 Creat Clearance w eGFR > 60 POC Glucometer 111 Random Glucose 202 H D Calcium 8.6 Total Bilirubin 0.9 D AST 11 L D ALT 14 D Alkaline Phosphatase 59 Total Protein 6.5 Albumin 3.7 D Urine Color Urine Appearance Urine pH Ur Specific [place] Urine Protein Urine Glucose (UA) Urine Ketones Urine Blood Urine Nitrite Urine Bilirubin Urine Urobilinogen Ur Leukocyte Esterase Urine WBC (Auto) Urine RBC (Auto) Ur Epithelial Cells Urine Mucus RPR Titer 01/15/18 01/15/18 01/15/18 06:00 06:00 16:27 WBC RBC Hgb Hct MCV MCH MCHC RDW Plt Count MPV Sodium Potassium Chloride Carbon Dioxide Anion Gap BUN Creatinine Creat Clearance w eGFR POC Glucometer 118 114 Random Glucose Calcium Total Bilirubin AST ALT Alkaline Phosphatase Total Protein Albumin Urine Color Urine Appearance Urine pH Ur Specific [place] Urine Protein Urine Glucose (UA) Urine Ketones Urine Blood Urine Nitrite Urine Bilirubin Urine Urobilinogen Ur Leukocyte Esterase Urine WBC (Auto) Urine RBC (Auto) Ur Epithelial Cells Urine Mucus RPR Titer Nonreactive 01/15/18 01/16/18 21:05 06:10 WBC RBC Hgb Hct MCV MCH MCHC RDW Plt Count MPV Sodium Potassium Chloride Carbon Dioxide Anion Gap BUN Creatinine Creat Clearance w eGFR POC Glucometer 182 112 Random Glucose Calcium Total Bilirubin AST ALT Alkaline Phosphatase Total Protein Albumin Urine Color Urine Appearance Urine pH Ur Specific [place] Urine Protein Urine Glucose (UA) Urine Ketones Urine Blood Urine Nitrite Urine Bilirubin Urine Urobilinogen Ur Leukocyte Esterase Urine WBC (Auto) Urine RBC (Auto) Ur Epithelial Cells Urine Mucus RPR Titer LABS NOTED. Assessment: 01/16/18 15:35 WITHDRAWAL SYMPTOMS. Plan: CONTINUE DETOX. X-RAY OF RIGHT RIBCAGE ORDERED (SEE MEDICAL PROVIDER NOTE FROM 01/14/2018). RESULTS PENDING.
[2018-01-16] MEDS: chlordiazePOXIDE 5 MG CAPSULE PO SCH (22:30)
[2018-01-16] MEDS: ATORVASTATIN CA 40 MG TABLET (FP) PO SCH (22:32)
[2018-01-16] MEDS: THIAMINE HCL 100 MG TABLET (FP) PO SCH (22:34)
[2018-01-17] MEDS: chlordiazePOXIDE 5 MG CAPSULE PO SCH ×3 (06:22→18:13)
[2018-01-17] MEDS: chlordiazePOXIDE HCL 25 MG CAPSULE PO PRN (06:57)
[2018-01-17] MEDS: metFORMIN HCL 500 MG TABLET (FP) PO SCH ×2 (06:57→18:13)
[2018-01-17] MEDS: INSULIN SLIDING SCALE (NOVOLOG) 1 VIAL SQ SCH ×4 (07:59→23:12)
[2018-01-17] MEDS: NAPROXEN 250 MG TABLET (FP) PO SCH ×2 (10:22→23:12)
[2018-01-17] MEDS: ASPIRIN 81 MG CHEWABLE TABLETS PO SCH (10:22)
[2018-01-17] MEDS: PRENATAL VITAMINS W/ FOLIC ACID TABLET (FP) PO SCH (10:22)
[2018-01-17] MEDS: LISINOPRIL 5 MG TABLET (FP) PO SCH (10:22)
[2018-01-17] MEDS: BUDESONIDE/FORMETEROL FUMARATE 160/4.5 mcg INHALER IH SCH ×2 (10:22→23:13)
[2018-01-17] MEDS: NICOTINE 21 MG/24 HOURS TOPICAL PATCH TD SCH (10:23)
[2018-01-17] MEDS: ARTIFICIAL TEARS (POLYVINYL ALCOHOL 1.4%) OPTH DROPS OU SCH ×4 (11:07→23:13)
--- NOTE | 2018-01-17 18:02 | PN ---
[facility] Progress Note (SOAP) Subjective: Sweating, Fatigue, Anxious. Objective: PATIENT A & O X 3, OBSERVED AMBULATING ON UNIT. NO ACUTE DISTRESS. 01/17/18 18:00 Vital Signs Temperature 96.4 F L 01/17/18 15:09 Pulse Rate 76 01/17/18 15:09 Respiratory Rate 18 01/17/18 15:09 Blood Pressure 118/76 01/17/18 15:09 O2 Sat by Pulse Oximetry (%) Laboratory Tests 01/14/18 01/14/18 01/14/18 13:12 15:00 16:50 WBC RBC Hgb Hct MCV MCH MCHC RDW Plt Count MPV Sodium Potassium Chloride Carbon Dioxide Anion Gap BUN Creatinine Creat Clearance w eGFR POC Glucometer 218 117 Random Glucose Calcium Total Bilirubin AST ALT Alkaline Phosphatase Total Protein Albumin Urine Color [place] Urine Appearance Clear Urine pH 5.0 Ur Specific [place] 1.037 H Urine Protein 1+ H Urine Glucose (UA) 3+ H Urine Ketones Trace H Urine Blood Negative Urine Nitrite Negative Urine Bilirubin Negative Urine Urobilinogen 4.0 e.u/dl Ur Leukocyte Esterase Negative Urine WBC (Auto) 1 Urine RBC (Auto) 1 Ur Epithelial Cells Rare Urine Mucus Many RPR Titer 01/14/18 01/15/18 01/15/18 21:19 06:00 06:00 WBC 12.3 H RBC 3.81 L Hgb 11.1 L Hct 34.4 L MCV 90.5 MCH 29.2 MCHC 32.3 RDW 16.5 H Plt Count 246 MPV 11.3 H D Sodium 141 Potassium 3.6 Chloride 103 Carbon Dioxide 29 Anion Gap 9 BUN 19 H Creatinine 0.7 Creat Clearance w eGFR > 60 POC Glucometer 111 Random Glucose 202 H D Calcium 8.6 Total Bilirubin 0.9 D AST 11 L D ALT 14 D Alkaline Phosphatase 59 Total Protein 6.5 Albumin 3.7 D Urine Color Urine Appearance Urine pH Ur Specific [place] Urine Protein Urine Glucose (UA) Urine Ketones Urine Blood Urine Nitrite Urine Bilirubin Urine Urobilinogen Ur Leukocyte Esterase Urine WBC (Auto) Urine RBC (Auto) Ur Epithelial Cells Urine Mucus RPR Titer 01/15/18 01/15/18 01/15/18 06:00 06:00 16:27 WBC RBC Hgb Hct MCV MCH MCHC RDW Plt Count MPV Sodium Potassium Chloride Carbon Dioxide Anion Gap BUN Creatinine Creat Clearance w eGFR POC Glucometer 118 114 Random Glucose Calcium Total Bilirubin AST ALT Alkaline Phosphatase Total Protein Albumin Urine Color Urine Appearance Urine pH Ur Specific [place] Urine Protein Urine Glucose (UA) Urine Ketones Urine Blood Urine Nitrite Urine Bilirubin Urine Urobilinogen Ur Leukocyte Esterase Urine WBC (Auto) Urine RBC (Auto) Ur Epithelial Cells Urine Mucus RPR Titer Nonreactive 01/15/18 01/16/18 01/16/18 21:05 06:10 17:08 WBC RBC Hgb Hct MCV MCH MCHC RDW Plt Count MPV Sodium Potassium Chloride Carbon Dioxide Anion Gap BUN Creatinine Creat Clearance w eGFR POC Glucometer 182 112 117 Random Glucose Calcium Total Bilirubin AST ALT Alkaline Phosphatase Total Protein Albumin Urine Color Urine Appearance Urine pH Ur Specific [place] Urine Protein Urine Glucose (UA) Urine Ketones Urine Blood Urine Nitrite Urine Bilirubin Urine Urobilinogen Ur Leukocyte Esterase Urine WBC (Auto) Urine RBC (Auto) Ur Epithelial Cells Urine Mucus RPR Titer 01/17/18 01/17/18 06:56 16:30 WBC RBC Hgb Hct MCV MCH MCHC RDW Plt Count MPV Sodium Potassium Chloride Carbon Dioxide Anion Gap BUN Creatinine Creat Clearance w eGFR POC Glucometer 93 115 Random Glucose Calcium Total Bilirubin AST ALT Alkaline Phosphatase Total Protein Albumin Urine Color Urine Appearance Urine pH Ur Specific [place] Urine Protein Urine Glucose (UA) Urine Ketones Urine Blood Urine Nitrite Urine Bilirubin Urine Urobilinogen Ur Leukocyte Esterase Urine WBC (Auto) Urine RBC (Auto) Ur Epithelial Cells Urine Mucus RPR Titer LABS NOTED. Assessment: 01/17/18 18:01 WITHDRAWAL SYMPTOMS. Plan: CONTINUE DETOX. RESULTS OF X-RAY OF RIGHT RIBCAGE NOTED. PATIENT ADVISED TO OBTAIN [facility] [facility]EL[facility] AT [facility] (NEAR WHERE HE LIVES) TO GO TO FOR MEDICAL ASSESSMENT AND FOR FURTHER EVALUATION OF CHEST / RIB DISCOMFORT AFTER DISCHARGE FROM DETOX.
[2018-01-17] MEDS: chlordiazePOXIDE HCL 10 MG CAPSULE PO SCH (23:12)
[2018-01-17] MEDS: ALBUTEROL SO4 18 GM HFA INHALER IH PRN (23:13)
[2018-01-17] MEDS: THIAMINE HCL 100 MG TABLET (FP) PO SCH (23:13)
[2018-01-17] MEDS: ATORVASTATIN CA 40 MG TABLET (FP) PO SCH (23:13)
[2018-01-18] MEDS: chlordiazePOXIDE HCL 10 MG CAPSULE PO SCH (06:08)
[2018-01-18] MEDS: metFORMIN HCL 500 MG TABLET (FP) PO SCH (06:34)
[2018-01-18 06:43] VITALS: BP 116/69; PULSE 83; TEMP 98
[2018-01-18] MEDS: INSULIN SLIDING SCALE (NOVOLOG) 1 VIAL SQ SCH (08:03)
[2018-01-18] MEDS: ALBUTEROL SO4 18 GM HFA INHALER IH PRN (08:22)
--- NOTE | 2018-01-18 12:33 | DS ---
[facility] Detox Discharge Summary Admission Date: 01/14/18 Discharge Date: 01/18/18 - History Present History: Alcohol Dependence Pertinent Past History: Asthma DMT2 - Physical Exam Results Vital Signs: Vital Signs Temperature 98 F 01/18/18 06:42 Pulse Rate 83 01/18/18 06:42 Respiratory Rate 16 01/18/18 06:42 Blood Pressure 116/69 01/18/18 06:42 O2 Sat by Pulse Oximetry (%) Pertinent Admission Physical Exam Findings: Withdrawal symptoms - Treatment Hospital Course: Detox Protocol Followed, Detoxed Safely, Responded well, Discharged Condition Good - Medication Discharge Medications: Ambulatory Orders Aripiprazole [Abilify -] 10 mg PO DAILY 12/21/17 Tiotropium [place] [Spiriva] 2 inh IH DAILY 12/21/17 Albuterol Sulfate Inhaler - [Ventolin HFA Inhaler -] 2 inh PO Q4H PRN #1 inhaler 12/24/17 Aspirin [ASA -] 81 mg PO DAILY #30 tab.chew 12/24/17 Atorvastatin Ca [Lipitor] 40 mg PO HS #30 tablet 12/24/17 Budesonide/Formeterol Fumarate [SYMBICORT 160/4.5mcg -] 1 inh PO BID #1 inhaler 12/24/17 Lisinopril [Prinivil] 5 mg PO DAILY #30 tablet 12/24/17 metFORMIN HCL [Glucophage -] 500 mg PO BID #60 tablet 12/24/17 - Diagnosis (1) Alcohol dependence with uncomplicated withdrawal Status: Acute (2) Nicotine dependence Status: Chronic Qualifiers: Nicotine product type: cigarettes Substance use status: in withdrawal Qualified Code(s): F17.213 - Nicotine dependence, cigarettes, with withdrawal (3) Asthma Status: Chronic Qualifiers: Asthma severity: moderate Asthma persistence: persistent Asthma complication type: with status asthmaticus Qualified Code(s): J45.42 - Moderate persistent asthma with status asthmaticus (4) DM (diabetes mellitus), type 2 Status: Chronic Qualifiers: Diabetes mellitus [place] foreman insulin use: without assisted use Diabetes mellitus complication status: without complication Qualified Code(s): E11.9 - Type 2 diabetes mellitus without complications (5) Depression Status: Chronic Qualifiers: Depression Type: dysthymia Qualified Code(s): F34.1 - Dysthymic disorder - AMA Did Patient Leave Against Medical Advice: No (Follow up with your PCP within 1- 2 weeks)
== END 2018-01-18 09:21 | disposition home or self-care (01) | DRG 775 ==
LOC: YASAS 10:07 → Y3N 13:37
PROVIDERS: ADMIT Internal Medicine; ATTEND Internal Medicine
PROC: HZ2ZZZZ Detoxification Services for Substance Abuse Treatment (ICD-10-PCS; principal; 2018-01-14)
DX: F10.230 Alcohol dependence with withdrawal, uncomplicated (principal); F12.10 Cannabis abuse, uncomplicated; F17.210 Nicotine dependence, cigarettes, uncomplicated; F34.1 Dysthymic disorder; F19.24 Other psychoactive substance dependence with psychoactive substance-induced mood disorder; I10 Essential (primary) hypertension; E11.9 Type 2 diabetes mellitus without complications; H04.129 Dry eye syndrome of unspecified lacrimal gland
CPT/HCPCS: 36415; 71101-TC-RT-FY; 80053; 81003; 81015; 82962; 85027; 86593; 93005; 93010